=== PATIENT | male | born 1950 | race Caucasian/White ===

== ENCOUNTER 2019-05-11 11:42 | Inpatient (IN) ==
--- NOTE | 2019-05-11 12:07 | Diag Imaging Result Doc PS360 ---
EXAM: CHEST-PORTABLE 05/11/2019 HISTORY: slurred speech/confusion TECHNIQUE: AP upright at 1202 COMMENT: There is no evidence of acute cardiac or pulmonary disease. There are no previous studies available for comparison. IMPRESSION: No evidence of acute disease. Electronically signed by Loki Michael 05/11/2019 12:04 PM
--- NOTE | 2019-05-11 12:08 | Diag Imaging Result Doc PS360 ---
EXAM: CT HEAD W/O CONTRAST 05/11/2019 HISTORY: slurred speech s/p fall TECHNIQUE: This exam was performed using automated exposure control, adjustment of mA or kV according to patient size, and/or use of iterative reconstruction technique. COMMENT: There is no evidence of mass effect, bleed, or abnormal extra-axial fluid collection. The calvarium is intact. There are mucus retention cysts in both maxillary sinuses. IMPRESSION: No evidence of acute intracranial disease. Electronically signed by Loki Michael 05/11/2019 12:06 PM
--- NOTE | 2019-05-11 13:28 | EKG Report ---
Test Performed on : 05/11/2019 11:50:18 AM Test Reason : slurred speech Blood Pressure : / mmHG Vent. Rate : 062 BPM Atrial Rate : 062 BPM P-R Int : 176 ms QRS Dur : 096 ms QT Int : 430 ms P-R-T Axes : 038 -24 041 degrees QTc Int : 436 ms Sinus rhythm. with premature atrial complexes. Otherwise normal ECG No previous ECGs available Unconfirmed Result
[2019-05-11 13:56] LABS: BASO# 0.05 X1000 (0.0-0.2); BASO% 0.8 % (0.0-0.8); EOS# 0.43 X1000 (0.0-0.7); EOS% 7.1 % (0.0-10.0); HEMATOCRIT 46.4 % (42.0-52.0); HEMOGLOBIN 15.8 g/dL (14.0-18.0); LYMPH# 1.51 X1000 (1.2-3.4); LYMPH% 24.8 % (20.5-51.1); MCH 34.3 PG (27-31); MCHC 34.1 g/dL (33-37); MCV 100.9 FL (81-99); MONO# 0.74 X1000 (0.11-0.59); MONO% 12.2 % (1.7-9.3); MPV 10.2 FL (7.4-10.4); NEUT# 3.36 X1000 (1.4-6.5); NEUT% 55.1 % (42.2-75.2); PLT 295 X1000 (130-400); RDW 14.5 % (11.5-14.5); WBC 6.09 X1000 (4.8-10.8)
[2019-05-11 14:02] LABS: INR 0.99; PROTIME 13.2 Seconds (11.0-16.0)
[2019-05-11 14:03] LABS: PTT 31.1 Seconds (22.3-41.8)
[2019-05-11 14:25] LABS: AGAP 13; ALB/GLOB RATIO 1.5; ALBUMIN 4.2 g/dL (3.5-5.0); ALKALINE PHOSPHATASE 98 U/L (32-122); BUN 21 mg/dL (8-22); CALCIUM 8.9 mg/dL (8.8-10.2); CHLORIDE 103 mmol/L (98-107); CK PROFILE 199 U/L (24-204); COSMO 284; CREATININE 1.1 mg/dL (0.7-1.2); ESTIMATED GFR > 60; GLUCOSE 101 mg/dL (70-104); GOT 26 U/L (10-34); GPT 17 U/L (10-44); POTASSIUM 4.5 mmol/L (3.5-5.1); SODIUM 141 mmol/L (136-145); TCO2 25 mmol/L (25-35); TOTAL BILIRUBIN 0.54 mg/dL (0.20-1.00)
[2019-05-11 15:24] LABS: URINE SOURCE CLEAN CATCH
[2019-05-11 15:28] LABS: BILIRUBIN URINE NEGATIVE (NEGATIVE); BLOOD URINE NEGATIVE (NEGATIVE); COLOR YELLOW; GLUCOSE URINE NEGATIVE (NEGATIVE); KETONE URINE NEGATIVE (NEGATIVE); LEUKOCYTES URINE NEGATIVE (NEGATIVE); NITRITE URINE NEGATIVE (NEGATIVE); PROTEIN URINE NEGATIVE (NEGATIVE); SP GRAVITY URINE 1.019; TURBIDITY URINE CLEAR (CLEAR); UROBILINOGEN URINE NORMAL (NORMAL)
[2019-05-11 15:29] LABS: UR EPITHELIAL CELLS <10 /HPF (<10); URINE BACTERIA NEGATIVE /HPF; URINE RBC <10 /HPF (<10); URINE WBC <10 /HPF (<10)
--- NOTE | 2019-05-11 20:44 | HISTORY AND PHYSICAL ---
CHIEF COMPLAINT: Multiple recent falls at home, hit his head about 2:30 a.m. and has had slurred speech since. HISTORY OF PRESENT ILLNESS: Mr. Carmichael is a 68-year-old gentleman with an unfortunate progressive neurological condition that remains undiagnosed. It has been characterized by significant ataxia and spastic gait along with mild cognitive impairment, frequent stuttering, and other conditions described below. His accompanied him today and said that around 2:30 this morning he stood to void into a urinal and fell backwards and hit his occiput pretty hard on the floor. She feels his speech has been more slurred since he fell. He has fallen almost daily for the past several months. He walks with a walker at home but this has not helped much. He completed balance physical therapy in January and for a short while was walking better with more upright posture. His first fall was approximately two years ago. In December of 2017 he fell hard and was seen at [facility] where a CT scan revealed some fractured lumbar transverse processes. His falls became more frequent in June 2018. He has seen multiple specialists, including Kishan Carmona and Dr. Mc Vora for psychological testing. He has had an unremarkable EEG in July. Last June he had a nearly unremarkable MRI exam. He also has had MRI of his cervical spine with no evidence of severe or moderate spinal stenosis. In January of this year he had a PET scan of his brain which showed no temporal or frontal reduction in metabolism to suggest either Alzheimer's disease or frontotemporal dementia. No ventricular enlargement was present to suggest normal pressure hydrocephalus. PAST MEDICAL HISTORY: Remarkable for hypertension, obstructive sleep apnea, gastroesophageal reflux disease, previous gout attacks, impaired fasting glucose with borderline diabetes. PAST SURGICAL HISTORY: He has a remote history of L4 to S1 laminectomy and foraminectomy. He has had surgery in the past for parathyroid adenomas. He has had left knee surgery. In July 2018 he underwent right shoulder rotator cuff repair after a fall with a torn rotator cuff. He subsequently injured his shoulder again and his orthopedic surgeon declined to operate again until the falling was diagnosed and treated. HOME MEDICATIONS: Acyclovir 400 mg three times a day, allopurinol 300 mg daily, aspirin 325 mg twice a day, diazepam 5 mg at bedtime, donepezil 10 mg two tablets once daily for memory, lisinopril 40 mg daily for hypertension, rosuvastatin 20 mg daily for high cholesterol. ALLERGIES: He is allergic to Minocin, Zantac, codeine, minoxidil, and some adhesives. REVIEW OF SYSTEMS: Constitutional: No fever, chills, night sweats, or weight loss. Respiratory: No shortness of breath, cough, or wheezing. Cardiovascular: No recent chest pains, orthopnea, PND, palpitations, or pedal edema. Gastrointestinal: Appetite has been good. No recent nausea, vomiting, diarrhea, or constipation. No history of liver disease. Genitourinary: Nocturia x2, no dysuria or hematuria. Musculoskeletal: He frequently complains of some lower lumbar aching pains. Both shoulders have limitations of range of motion and some pain close to the limits of range of motion. Neurologic: No chronic headaches. Some occipital aching today after his fall. PHYSICAL EXAMINATION: VITAL SIGNS: Temperature 97.6, blood pressure 128/73, pulse 51 to 66, respiratory rate 19, O2 saturation 97% on room air. GENERAL APPEARANCE: Alert, elderly gentleman who answers questions in a somewhat gjmomr-gf-hsat way with flattened affect. He does not appear drowsy but sometimes is slow to respond. HEENT: Pupils equal, round and reactive to light. Extraocular movements intact. Sclerae are white. Oropharynx is benign. NECK: Supple with no adenopathy, JVD, or bruits. CHEST: The lungs are clear bilaterally to auscultation anteriorly and posteriorly. CARDIAC: Regular rate and rhythm. Normal S1 and S2. No S3, S4 or murmurs. ABDOMEN: Soft, flat, and nontender. Active bowel sounds. There is no guarding or rebound tenderness present. MUSCULOSKELETAL: He moves all extremities on commands. I did not note any tremor or rigidity. No cogwheeling is present. NEUROLOGIC: Cranial nerves are grossly intact. I do not appreciate any focal deficit. His gait is not tested. DATABASE: CBC is unremarkable. Chemistry profile with glucose of 101, otherwise unremarkable. MCV is borderline enlarged. Vitamin B12 level is normal. Chest x-ray is unremarkable. Head CT shows no evidence of mass effect, bleeding, or tumors. Mucus retention cysts were noted in both maxillary sinuses. Electrocardiogram was unremarkable. ASSESSMENT: 1. Multiple recent falls with history of ataxia and undiagnosed neurologic condition. 2. Mild cognitive impairment. 3. History of essential hypertension. 4. History of mild chronic kidney disease. TREATMENT PLAN: Admit with neurological consultation and close clinical examinations for altered mental status. I am at a loss for assigning a diagnosis to explain his multiple abnormal findings and relatively normal BASE MANAGER testing that has been done. cc: Red Burgos MD MTDD
[2019-05-11] MEDS: PRINIVIL PO SCH (21:00)
[2019-05-11] MEDS: ASPIRIN EC PO SCH (21:00)
[2019-05-12] MEDS: ARICEPT PO SCH (09:15)
[2019-05-12] MEDS: CRESTOR PO SCH (09:15)
--- NOTE | 2019-05-12 14:52 | CONSULTATION ---
DATE OF CONSULTATION: 05/12/2019 HISTORY OF PRESENT ILLNESS: Mr. Carmichael is 68 years old and he has continued downhill. He was last seen in my office in January. I initially saw him in August. He has had progressive cognitive impairment, gait difficulty, more frequent falling. There has been some personality change. He has been falling more frequently and reportedly fell and hit his head yesterday. reported speech was more difficult transiently after that fall. Brain MRI approximately a year ago was unremarkable for age. EEG was not remarkable. More recent brain PET was remarkably unremarkable. Cervical MRI in August showed diffuse degenerative changes but no evidence of significant cord abnormality. He has had a trial with donepezil without definite benefit. Donepezil dose had been 20 mg daily and after the PET report, I had recommended tapering donepezil to 10 mg daily with plans to stop it. He continues diazepam, buspirone, zolpidem as other medicines on board with potential CUSTOMER ENGAGEMENT REPRESENTATIVE effects. PHYSICAL EXAMINATION: On exam now, Mr. Carmichael is sitting up feeding himself, awake, alert, attentive. He followed simple instructions. He did well with commands requiring right/left distinction. He used his left arm a little bit more purposefully than the right. He was slow with ubjrsg-gw-irzp and performed that a little bit better with the left hand than the right. Limb tone is increased throughout. Reflexes are brisk throughout. Plantar response is silent bilaterally. Gait is wide-based with some spastic features and some lurching, lunging forward. He would have fallen after just a few steps had I not held him. IMPRESSION: Progressive degenerative central nervous system process with cognitive impairment, personality change, gait difficulty. Imaging has not provided an answer. Course seems too protracted to be typical of an autoimmune encephalitis. PLAN: I do not have any specific suggestion right now. As discussed with Dr. Burgos, I think elective tertiary clinic referral would be the best next step. Thanks for asking Neurology to see Mr. Carmichael. cc: MD Red Ford III, MD MTDD
--- NOTE | 2019-05-12 17:57 | PROVIDER DOCUMENTATION ---
This chart was entered by Lubna Chavez Scribe, acting as scribe for Tamika Bowman MD. HPI-Head Injury - General Chief Complaint: Head Injury Stated Complaint: FALL,HEAD INJURY,STROKE LIKE SYMPTOMS Time Seen by Provider: 05/11/19 12:07 Source: patient, family Allergies/Adverse Reactions: Patient Allergies Allergy/AdvReac Type Severity Reaction Status Date / Time minocycline [From Minocin] Allergy ITCHING Verified 05/11/19 12:23 ranitidine [From Zantac] Allergy SHORTNESS Verified 05/11/19 12:22 OF BREATH Home Medications: Home Medication List Medication Instructions Recorded Confirmed Last Taken Type Allopurinol [Zyloprim] 300 mg PO DAILY 05/11/19 05/11/19 05/11/19 History Aspirin [Ecotrin] 325 mg PO QHS 05/11/19 05/11/19 1 Day Ago History ~05/10/19 Donepezil [Aricept] 20 mg PO QAM 05/11/19 05/11/19 05/11/19 History Lisinopril [Zestril] 40 mg PO QPM 05/11/19 05/11/19 1 Day Ago History ~05/10/19 ROSUVAstatin [Crestor] 20 mg PO DAILY 05/11/19 05/11/19 05/11/19 History Tamsulosin [Flomax] 0.4 mg PO QPM 05/11/19 05/11/19 1 Day Ago History ~05/10/19 Folic Acid 1 mg PO DAILY #30 tab 05/17/19 Unknown Rx Zolpidem [Ambien] 10 mg PO HS PRN PRN #21 05/17/19 05/11/19 1 Day Ago Rx ~05/10/19 - History of Present Illness-Head Injury Nature of Presenting Problem: Pt is a 68 yom who presents into the ED via family for head injury. He fell at 2:30am. He hit his head on the corner of the night stand. Pt has right shoulder and back pain. Denies LOC, nausea, and vomiting. Head Injury Location: reports: occipital Other injuries associated with incident:: reports: RUE (shoulder). denies: chest, abdomen Quality of Pain: reports: aching Severity: reports: mild Onset/Duration: reports: this morning (2:30am) Timing: reports: still present, changing over time Method of Injury: reports: direct blow, fell. denies: assault, burn Any recent trauma/injury?: reports: minor, to head, to neck, other (lower and middle back pain from fall a week ago.) Loss of Consciousness: no loss of consciousness Injury Associated Symptoms: reports: back/neck pain, weakness Locality of Occurance: Home Similar Symptoms Previously?: Yes Recently seen or treated by another doctor?: No Review of Systems - Adult - REVIEW OF SYSTEMS - ADULT Constitutional: reports: no symptoms reported. denies: chills, fever, fatique Eyes: reports: no symptoms reported Ears, Nose, Mouth & Throat: reports: no symptoms reported Cardiovascular: reports: no symptoms reported Respiratory: reports: no symptoms reported Gastrointestinal: reports: no symptoms reported. denies: abdominal pain, [place], vomiting Genitourinary: reports: no symptoms reported Musculoskeletal: reports: see HPI, back pain (mid and lower), other (right sharon ulder pain) Integumentary: reports: no symptoms reported Neurological: reports: see HPI, other (head injury without LOC). denies: dizziness/vertigo, headache/migraines Psychiatric: reports: no symptoms reported Endocrine: reports: no symptoms reported Hematologic/Lymphatic: reports: no symptoms reported Allergic/Immunologic: reports: no symptoms reported All Other Systems: Reviewed and Negative Past History - Adult - PAST MEDICAL HISTORY-ADULT Review of Records: reports: Old Records Reviewed, Social history reviewed & non- contributory. Major Childhood Illnesses: reports: denies history Cardiovascular: reports: HTN, hyperlipidemia Respiratory: reports: denies history. denies: COPD, lung disease Gastrointestinal: reports: denies history Obstetrical/Gynecological: reports: denies history Genitourinary: reports: denies history Musculoskeletal: reports: neck/back injury Neurological: reports: dementia. denies: headaches/migraines, speech difficulty Endocrine/Immune: reports: denies history Other Conditions: reports: denies history - PRIOR SURGERIES/PROCEDURES Surgical/Procedure History: reports: orthopedic (extremity) (right shoulder) - IMMUNIZATION STATUS Childhood Immunizations: See Nurse Assessment Flu Vaccine: See Nurse Assessment - FAMILY HISTORY Family History: reviewed, not pertinent - SOCIAL HISTORY Smoking: cigarettes (former) Substance Use: denies Living Situation: family Physical Exam- Neurological - Physical Exam-Neuro Initial Vital Signs Reviewed: Yes General Appearance: alert, no apparent distress. negative: lethargic HENMT: moist mucous membranes, other (ecchymosis to occipital scalp). negative: angioedema Head Injury: ecchymosis (occipital scalp). negative: lacerations, swelling Neck: non-tender, full range of motion, normal inspection. negative: tender lateral Respiratory: chest non-tender, lungs clear, normal breath sounds. negative: rales, stridor Cardiovascular: normal peripheral pulses, regular rate, rhythm. negative: tachycardia Abdominal Exam: normal bowel sounds, non tender, soft. negative: guarding, rebound Extremity: other (decreased ROM to right shoulder). negative: deformity, ten derness Neurologic: grossly normal, no motor/sensory deficits. negative: aphasia Integumentary: normal turgor, warm/dry, ecchymosis (occipital scalp, left lower back and right side chest). negative: laceration(s) Psych/Mental Status: normal mood/affect. negative: anxious Progress - PLAN OF CARE/RESULTS Progress/Plan/Lab Results: Orders Category Date Time Status [facility] Routine AdmDCTranf 05/11/19 17:51 Active Activity - Up with Assistance ORDERED Care 05/11/19 17:51 Active Apply Mechanical Device [QM] ORDERED Care 05/11/19 17:51 Active Cardiac Monitoring DIRECTED Care 05/11/19 11:51 Completed DVT/PE Risk Assess/Protocol [QM] ORDERED Care 05/11/19 17:51 Active Finger Stick Blood Sugar (ED) DIRECTED Care 05/11/19 11:51 Completed Intake and Output-Strict ORDERED Care 05/11/19 17:51 Active Neurological Check ORDERED Care 05/11/19 17:51 Active Nursing- MD Consult Request ROUTINE Care 05/11/19 17:51 Completed Saline Loc NOW Care 05/11/19 11:51 Completed Vital Signs Order Q 8-HR ASSESS Care 05/11/19 17:51 Completed Physician/Provider Consults Routine Cons 05/11/19 17:51 Ordered Regular Diet Diet 05/11/19 17:51 Completed CHEST-PORTABLE [RAD] Stat Exams 05/11/19 11:[address] HEAD W/O CONTRAST [CT] Stat Exams 05/11/19 11:49 Completed CBC WITH ELECTRONIC DIFF [HEME] Stat Lab 05/11/19 12:45 Completed CK PROFILE [SP CHEM] Stat Lab 05/11/19 12:45 Completed COMPREHENSIVE METABOLIC PANEL [CHEM] Stat Lab 05/11/19 12:45 Completed FOLATE Routine Lab 05/11/19 12:45 Completed PROTIME WITH INR [COAG] Stat Lab 05/11/19 12:45 Completed PTT [COAG] Stat Lab 05/11/19 12:45 Completed TROPONIN T Stat Lab 05/11/19 12:45 Completed URINALYSIS W/POSS RFLX CULT [URINALYSIS] Stat Lab 05/11/19 15:06 Completed VITAMIN B12 Routine Lab 05/11/19 12:45 Completed Aspirin EC Med 05/11/19 21:00 Discontinued 325 mg PO QHS Donepezil [Aricept] Med 05/12/19 09:00 Discontinued 20 mg PO QAM LISINOpril [Prinivil] Med 05/11/19 21:00 Discontinued 40 mg PO QPM ROSUVAstatin [Crestor] Med 05/12/19 09:00 Discontinued 20 mg PO DAILY Zolpidem [Ambien] Med 05/11/19 17:51 Discontinued 10 mg PO HS PRN PRN EKG [EKG] Stat Ther 05/11/19 11:51 Draft Physical Therapy Eval/Treatment [OM.PT] Routine Ther 05/11/19 17:51 Active Transfer/Admit Order [TRANSFER] Routine Transfer 05/11/19 17:02 Completed Result Diagrams: 05/11/19 12:45 05/11/19 12:45 - EKG 1 Time of EKG reading by physician:: 11:50 EKG Read and Signed by:: Tamika Bowman EKG Interpretation (*Must complete 3 of following elements*): Abnormal Rate: 62 Rhythm: sinus rhythm with premature atrial complexes [place]: normal [place] Interval: normal Comments: otherwise normal ECG - XRAY 1 XRAY Study: Chest Impression: See EMR Report (EXAM: CHEST-PORTABLE 05/11/2019 HISTORY: slurred speech/confusion TECHNIQUE: AP upright at 1202 COMMENT: There is no evidence of acute cardiac or pulmonary disease. There are no previous studies available for comparison. IMPRESSION: No evidence of acute disease. Electronically signed by Loki Michael 05/11/2019 12:04 PM 05/11/19 1204 Interpreting Physician: Loki Michael MD Dictated Date/Time: 05/11/19 1203 cc: Tamika Bowman MD; Red Burgos MD) - CT/MRI 1 CT Study: Head Impression: See EMR Report (EXAM: CT HEAD W/O CONTRAST 05/11/2019 HISTORY: slurred speech s/p fall TECHNIQUE: This exam was performed using automated exposure control, adjustment of mA or kV according to patient size, and/or use of iterative reconstruction technique. COMMENT: There is no evidence of mass effect, bleed, or abnormal extra-axial fluid collection. The calvarium is intact. There are mucus retention cysts in both maxillary sinuses. IMPRESSION: No evidence of acute intracranial disease. Electronically signed by Loki Michael 05/11/2019 12:06 PM 05/11/19 1206 Interpreting Physician: Loki Michael MD Dictated Date/Time: 05/11/19 1205 cc: Tamika Bowman MD; Red Burgos MD) - CONSULTS/PCP/HOSPITALIST Notification #1 *Consult/PCP/Hospitalist*: Dr. Burgos Time Discussed: 14:52 Reason/Comments: Dr. Bowman consulted with Dr. Burgos about patient Consult Disposition: Admit Departure - Departure Date of Disposition Decision: 05/11/19 Time of Disposition Decision: 15:00 DIAGNOSIS: Fall Head injury Qualifiers: Encounter type: initial encounter Qualified Code(s): S09.90XA - Unspecified injury of head, initial encounter Disposition: ADMITTED INPATIENT 09 Certified Medical Emergency: Emergent Condition: Good - Critical Care Note This patient required my direct & personal management of CC.: No Attestation - Physician/ SLICK Attestation Patient care was provided by Advanced Practice Provider:: No The physician spent face to face time with patient:: Yes Advanced Practice Provider documentation review:: Supervising physician onsite and consulted in the evaluation and care of this patient. The physician did have a face to face encounter with the patient. This chart was documented by the indicated scribe, (Lubna Chavez Scribe) and accurately reflects the services I performed and decisions made by me, Tamika Bowman MD, as attested by the provider's signature.
[2019-05-12] MEDS: AMBIEN PO PRN (20:14)
[2019-05-12] MEDS: ASPIRIN EC PO SCH (20:15)
[2019-05-12] MEDS: PRINIVIL PO SCH (20:15)
--- NOTE | 2019-05-13 10:07 | PROGRESS NOTE ---
DATE: 05/13/2019 Mr. Carmichael is a patient of Dr. Red Burgos who presented with multiple falls, history of multiple falls, hit his head at 2:30 in the morning, came in with slurred speech. A 68-year-old gentleman with unfortunate progressive neurologic condition that remains undiagnosed. He has been characterized with significant ataxia with spastic gait along with mild cognitive impairment, frequent stuttering and other conditions. His said that he stood trying to void into a urinal and fell backwards hitting his back of his head pretty hard. Feels his speech is more slurred. He has fallen almost daily for the past several months. Walks with a walker at home, but it has not helped much. He completed balance physical therapy in January and for short while he was walking better, more upright posture. His 1st fall was approximately 2 years ago, December 2017, fell hard. Seen at [facility] where CT scan revealed some fracture, lumbar transverse process, and his falls have become more frequent in June 2018. He has seen multiple specialists including Dr. Carmona, Dr. Mc Vora for psychological testing. Had an unremarkable EEG in July. Had a nearly unremarkable MRI exam of his cervical spine. No evidence of severe moderate spinal stenosis. He had a PET scan of his brain which showed no temporal or frontal reduction in metabolism to suggest Alzheimer's dementia or frontal temporal dementia. No ventricular enlargement to suggest hydrocephaly. PAST MEDICAL HISTORY: Remarkable for hypertension, obstructive sleep apnea, gastroesophageal reflux, previous gout attacks, impaired fasting glucose with borderline diabetes. PAST SURGICAL HISTORY: He has had a history of L4-L1 laminectomy and foraminectomy. He has had surgery in the past for parathyroid adenomas. He had left knee surgery in July 2018, underwent right shoulder rotator cuff repair after a fall. He subsequently injured his shoulder again and the surgeon declined to operate again with his risk of falling. HOME MEDICATION: He is on acyclovir, allopurinol, aspirin, diazepam, donepezil 10 mg 2 tablets a day for memory, lisinopril 40 mg a day for hypertension, rosuvastatin 20 mg a day for cholesterol. ALLERGIES: Minocin, Zantac, codeine, minoxidil, and some adhesives. He is hard to give me much response. He does not feel like he is a whole lot different or better. He was lying in the bed. I had him scoot up, put up his bed so he could start eating breakfast. He was hungry. OBJECTIVE: Vital Signs: Temp 97.5 degrees, pulse 56, respirations 20, blood pressure 149/71. HEENT: His pupils are equal and round. Lungs: Are clear in all lung mata. Cardiovascular: Regular rhythm and rate without murmur or S3. Abdomen: Is soft. Skin: Is warm and dry. Urine output is 1500 mL. Reviewed all of his lab. I did not see anything remarkable. ASSESSMENT AND PLAN: 1. Multiple recent falls. History of ataxia. Diagnosis neurologic condition. 2. Mild cognitive impairment. 3. History of essential hypertension. 4. Mild chronic kidney disease. CURRENT ORDERS: He has physical therapy involved. He is on a regular diet. He is getting aspirin 325 mg at bedtime, Aricept 20 mg p.o. q.a.m., Prinivil 40 mg q.p.m., Crestor 20 mg a day and Ambien 10 mg p.o. at bedtime p.r.n. cc: MD Red Mccurdy MD
[2019-05-13] MEDS: ARICEPT PO SCH (10:42)
[2019-05-13] MEDS: CRESTOR PO SCH (10:43)
[2019-05-13 15:42] LABS: URINE SOURCE CLEAN CATCH
[2019-05-13 15:46] LABS: BILIRUBIN URINE NEGATIVE (NEGATIVE); BLOOD URINE NEGATIVE (NEGATIVE); COLOR YELLOW; GLUCOSE URINE NEGATIVE (NEGATIVE); KETONE URINE NEGATIVE (NEGATIVE); LEUKOCYTES URINE NEGATIVE (NEGATIVE); NITRITE URINE NEGATIVE (NEGATIVE); PROTEIN URINE TRACE mg/dL (NEGATIVE); SP GRAVITY URINE 1.018; TURBIDITY URINE HAZY (CLEAR); UROBILINOGEN URINE NORMAL (NORMAL)
[2019-05-13 15:51] LABS: UR EPITHELIAL CELLS <10 /HPF (<10); URINE BACTERIA NEGATIVE /HPF; URINE RBC <10 /HPF (<10); URINE WBC <10 /HPF (<10)
[2019-05-13 16:00] LABS: URINE CASTS NONE SEEN; URINE CRYSTALS NONE SEEN; URINE YEAST NONE SEEN
[2019-05-13] MEDS: PRINIVIL PO SCH (20:27)
[2019-05-13] MEDS: ASPIRIN EC PO SCH (20:27)
[2019-05-13] MEDS: AMBIEN PO PRN (20:36)
[2019-05-14] MEDS: ARICEPT PO SCH (09:46)
[2019-05-14] MEDS: CRESTOR PO SCH (09:46)
--- NOTE | 2019-05-14 10:36 | PROGRESS NOTE ---
DATE: 05/14/2019 SUBJECTIVE: Mr. Carmichael is awake and pleasant. He has a pretty flat affect. Answers questions pretty straightforward. Denies any pain or trouble with his bowels. He is not sure if he is any better. He is oriented to the hospital, the month, and the year. No focal neurologic deficits reported. Moving all extremities well. OBJECTIVE: Temperature 99.1 degrees, pulse 60, respirations 16, blood pressure 119/56. Pupils are equal and round. Lungs are clear in all lung mata. Cardiovascular Examination: Regular rhythm and rate without murmur or S3. Abdomen is soft. Skin is warm and dry. ASSESSMENT AND PLAN: 1. Multiple recent falls, history of ataxia, undiagnosed neurologic condition, a very flat affect. 2. Mild cognitive impairment. 3. History of essential hypertension. 4. Mild chronic kidney disease. His renal function, serum creatinine is 1.1, which looks good. REVIEW OF HIS ORDERS: He is just on aspirin 325 mg a day, Aricept 20 mg q.a.m., lisinopril 40 mg a day, Crestor 20 mg a day, and he takes Ambien [address] Carmona has evaluated and feels he has progressive degenerative central nervous system process with cognitive impairment, personality change, gait difficulty. Imaging so far has not provided any answers. The course seems too protracted to be typical of autoimmune encephalitis or vasculitis. cc: MD Red Mccurdy MD
[2019-05-14] MEDS: ASPIRIN EC PO SCH (20:19)
[2019-05-14] MEDS: PRINIVIL PO SCH (20:19)
[2019-05-14] MEDS: AMBIEN PO PRN (20:20)
[2019-05-15] MEDS: ARICEPT PO SCH (08:43)
[2019-05-15] MEDS: CRESTOR PO SCH (08:43)
[2019-05-15] MEDS: ASPIRIN EC PO SCH (21:13)
[2019-05-15] MEDS: PRINIVIL PO SCH (21:13)
[2019-05-16] MEDS: CRESTOR PO SCH (09:43)
[2019-05-16] MEDS: ARICEPT PO SCH (09:43)
[2019-05-16] MEDS: PRINIVIL PO SCH (20:20)
[2019-05-16] MEDS: ASPIRIN EC PO SCH (20:20)
[2019-05-16] MEDS: AMBIEN PO PRN (20:25)
[2019-05-17 07:19] VITALS: BP 105/52
[2019-05-17] MEDS: ARICEPT PO SCH (08:32)
[2019-05-17] MEDS: CRESTOR PO SCH (08:32)
--- NOTE | 2019-05-17 08:51 | DISCHARGE SUMMARY ---
ADMISSION DATE: 05/11/2019 DISCHARGE DATE: 05/17/2019 FINAL DIAGNOSES: 1. Multiple recent falls with closed head injury and slurred speech. 2. 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 3. History of essential hypertension. 4. History of gout. 5. History of mild chronic kidney disease. 6. Possible folate deficiency. Mr. Kenneth Carmichael was evaluated in the emergency room after falling harder than usual at home. He has a history of almost daily falls for the past several months. His history is well summarized in the dictated History and Physical. He has a puzzling progressive neurologic disease that has defied our local neurologist and myself for final diagnosis. PHYSICAL EXAMINATION: VITAL SIGNS: Remarkable for normal vital signs. GENERAL: He is an alert, elderly gentleman who answered questions in a somewhat [id number] way with flattened affect. He does not appear drowsy but is slow to respond. HEENT: Pupils were equal, round, reactive to light. Extraocular movements intact. LUNGS: Clear. CARDIAC: Regular rate and rhythm. No murmurs. ABDOMEN: Soft, nontender. NEUROLOGICAL: No tremor, rigidity or cogwheeling was noted on neurologic exam. His cranial nerves were grossly intact and no focal deficit was appreciated. DATA BASE: CBC was unremarkable except for a borderline elevated MCV. Chemistry profile was normal. Vitamin B12 level was normal. Folate level was slightly low at 8.9. Head CT showed no evidence of mass effect, bleeding or tumors. HOSPITAL COURSE: He was admitted for serial neuro checks and other neurological evaluation. Dr. Carmona was consulted and felt he had reached the limit of our diagnostic abilities here in [place] and recommended he be evaluated by the Neurology Clinic at [facility]. I called and spoke with Dr. Ryan who felt he was appropriate for either the Memory Disorders Clinic or the General Neurology Clinic and will contact his with an appointment. With physical therapy, he progressed to where he was able to walk up to 250 feet but required frequent verbal cueing for patient safety and erect posture. He is discharged to [facility] for subacute rehab. DISCHARGE MEDICINES: 1. Folic acid 1 mg daily. 2. Allopurinol 300 mg daily. 3. Donepezil 20 mg daily. 4. Lisinopril 40 mg at bedtime. 5. Rosuvastatin 20 mg at bedtime. 6. Aspirin 325 mg at bedtime. 7. Tamsulosin 0.4 mg daily after supper. 8. Zolpidem 10 mg at bedtime p.r.n. for sleep. cc: Red Burgos MD
== END 2019-05-17 14:40 | DRG 57 ==
LOC: ED 11:42 → 3N 17:34
PROVIDERS: ADMIT Internal Medicine; ATTEND Internal Medicine

== ENCOUNTER 2019-07-21 20:41 | Inpatient (IN) ==
[2019-07-21] MEDS: EPINEPHRINE 4 MG in NS 250 ML IV SCH (21:05)
[2019-07-21] MEDS ORDERED: FENTANYL IV ONE (21:23)
[2019-07-21 21:25] LABS: ALLEN TEST YES; BE -13.3 mmoll (-3.0-3.0); BLOOD TYPE ARTERIAL; HCO3-(ACT) 14.5 mmoll (20.0-26.0); METHB 0.5 % (0.0-1.5); O2(CT) 16.3 mL/dL (15.0-23.0); O2HB 95.2 % (95.0-99.0); PO2(98.6) 122 mmHg (60-100); SAMPLE BLOOD; SAO2 97.6 % (95.0-100.0); SRATE 16 BPM; TVOL 550 mL
[2019-07-21 21:29] LABS: MODALITY VENTILATOR; PCO2(98.6) 108 mmHg (35-45)
[2019-07-21] MEDS ORDERED: FENTANYL 1,000 MICROGM in NS 80 ML IV SCH (21:30)
[2019-07-21] MEDS ORDERED: NS 1,000 ML ONE (21:39)
[2019-07-21] MEDS ORDERED: CALCIUM CHLORIDE SYRINGE ONE (22:00)
[2019-07-21] MEDS ORDERED: EPINEPHRINE SYRINGE ONE (22:00)
[2019-07-21] MEDS ORDERED: SODIUM BICARBONATE 8.4% ONE (22:00)
--- NOTE | 2019-07-21 22:03 | Diag Imaging Result Doc PS360 ---
EXAM: CHEST-PORTABLE 07/21/2019 HISTORY: Tube placement TECHNIQUE: AP portable supine at 2155 COMMENT: There is an endotracheal tube with its tip below the thoracic inlet. The inspiration is somewhat suboptimal. Considering degree of inspiration and technique there has been no significant change since 05/11/2019. IMPRESSION: No evidence of acute disease. Electronically signed by Loki Michael 07/21/2019 10:00 PM
[2019-07-21 22:29] LABS: INR 1.29; PROTIME 16.3 Seconds (11.0-16.0)
[2019-07-21 22:30] LABS: PTT 44.2 Seconds (22.3-41.8)
[2019-07-21 22:31] LABS: ALLEN TEST YES; BE -6.7 mmoll (-3.0-3.0); BLOOD TYPE ARTERIAL; HCO3-(ACT) 19.7 mmoll (20.0-26.0); METHB 0.7 % (0.0-1.5); O2(CT) 16.5 mL/dL (15.0-23.0); O2HB 97.6 % (95.0-99.0); PCO2(98.6) 45 mmHg (35-45); PO2(98.6) 291 mmHg (60-100); SAMPLE BLOOD; SAO2 99.7 % (95.0-100.0); SRATE 16 BPM; THB 11.5 g/dL (11.5-17.4); TVOL 550 mL; pH(98.6) 7.26 (7.35-7.45)
[2019-07-21 22:32] LABS: MODALITY VENTILATOR
[2019-07-21 22:38] LABS: BASO# 0.07 X1000 (0.0-0.2); BASO% 0.6 % (0.0-0.8); EOS# 0.37 X1000 (0.0-0.7); EOS% 3.2 % (0.0-10.0); HEMOGLOBIN 11.8 g/dL (14.0-18.0); IMM GRAN# 0.54 X1000 (0.0-0.04); IMM GRAN% 4.7 % (0.0-0.5); LYMPH# 4.26 X1000 (1.2-3.4); LYMPH% 36.9 % (20.5-51.1); MCH 33.3 PG (27-31); MCHC 31.9 g/dL (33-37); MCV 104.5 FL (81-99); MONO# 0.88 X1000 (0.11-0.59); MONO% 7.6 % (1.7-9.3); MPV 10.1 FL (7.4-10.4); NEUT# 5.41 X1000 (1.4-6.5); PLT 351 X1000 (130-400); RBC 3.54 XMIL (4.7-6.1); RDW 14.5 % (11.5-14.5); WBC 11.53 X1000 (4.8-10.8)
[2019-07-21 22:39] LABS: ALB/GLOB RATIO 1.5; ALBUMIN 3.2 g/dL (3.5-5.0); CALCIUM 8.7 mg/dL (8.8-10.2); CREATININE 1.3 mg/dL (0.7-1.2); POTASSIUM 4.1 mmol/L (3.5-5.1); TOTAL BILIRUBIN 1.04 mg/dL (0.20-1.00); TOTAL PROTEIN 5.3 g/dL (6.3-8.3)
[2019-07-21] MEDS ORDERED: ATIVAN IV ONE (23:28)
[2019-07-21] MEDS ORDERED: ATIVAN ONE (23:34)
[2019-07-22] MEDS: DIPRIVAN 1% 1,000 MG/100 ML BOTTLE IV SCH ×4 (00:51→05:46)
[2019-07-22] MEDS ORDERED: CALCIUM CHLORIDE ONE (01:00)
[2019-07-22] MEDS ORDERED: SODIUM BICARBONATE 8.4% ONE ×2 (01:00→08:56)
[2019-07-22] MEDS ORDERED: EPINEPHRINE SYRINGE ONE (01:00)
[2019-07-22] MEDS ORDERED: TYLENOL PR PRN (01:04)
[2019-07-22] MEDS ORDERED: NS 500 ML IV PRN (01:04)
[2019-07-22] MEDS ORDERED: SODIUM PHOSPHATE 20 MMOL in NS 250 ML IV PRN (01:15)
[2019-07-22] MEDS ORDERED: POTASSIUM CHLORIDE 40 MEQ in NS 250 ML IV PRN (01:15)
[2019-07-22] MEDS ORDERED: FENTANYL IV ONE (01:15)
[2019-07-22] MEDS: PEPCID IV SCH ×2 (01:15→14:01)
[2019-07-22] MEDS ORDERED: SODIUM PHOSPHATE 10 MMOL in NS 250 ML IV PRN (01:15)
[2019-07-22] MEDS: SODIUM CHLORIDE 0.9% INJ SCH ×2 (01:15→14:01)
[2019-07-22] MEDS: LACRI-LUBE OPH OINT BOTH EYES SCH ×4 (01:15→19:53)
[2019-07-22] MEDS ORDERED: MAGNESIUM SULFATE 2 GM in STERILE WATER INJ. 50 ML IV PRN (01:15)
[2019-07-22] MEDS ORDERED: LOVENOX SUBQ SCH (01:15)
[2019-07-22] MEDS ORDERED: POTASSIUM CHLORIDE 60 MEQ in NS 500 ML IV PRN (01:15)
--- NOTE | 2019-07-22 01:22 | PROVIDER DOCUMENTATION ---
This chart was entered by Topher Sy Scribe, acting as scribe for Gus Farfan MD. HPI-Cardiopulmonary Arrest - General Chief Complaint: Choking Stated Complaint: choking Time Seen by Provider: 07/21/19 20:48 Source: patient, EMS Allergies/Adverse Reactions: Allergies Allergy/AdvReac Type Severity Reaction Status Date / Time codeine Allergy ITCHING Verified 07/21/19 20:49 minocycline [From Minocin] Allergy ITCHING Verified 07/21/19 20:49 ranitidine [From Zantac] Allergy SHORTNESS Verified 07/21/19 20:49 OF BREATH Home Medications: Home Medication List Medication Instructions Recorded Confirmed Last Taken Type Allopurinol [Zyloprim] 300 mg PO DAILY 05/11/19 07/21/19 05/11/19 History Aspirin [Ecotrin] 325 mg PO QHS 05/11/19 07/21/19 1 Day Ago History ~05/10/19 Lisinopril [Zestril] 40 mg PO QPM 05/11/19 07/21/19 1 Day Ago History ~05/10/19 ROSUVAstatin [Crestor] 20 mg PO DAILY 05/11/19 07/21/19 05/11/19 History Tamsulosin [Flomax] 0.4 mg PO QPM 05/11/19 07/21/19 1 Day Ago History ~05/10/19 Citalopram [Celexa] 1 tab PO DAILY 07/21/19 07/22/19 Unknown History Diazepam 1 tab PO DAILY 07/21/19 07/22/19 Unknown History Glycopyrrolate 1 tab PO BID 07/21/19 07/21/19 Unknown History Zolpidem Tartrate 1 tab PO DAILY 07/21/19 07/22/19 Unknown History Zolpidem [Ambien] 0.5 tab PO HS PRN PRN 07/21/19 07/21/19 Unknown History - History of Present Illness-C/P Arrest Initial Comments: 68 yom presenst to the ed v/a ems in full arrest. EMS stated pt was chocking on piece of meat, on EMS arrival pt " head was completely purple ems states doing suction with huge piece of meat coming out , pt then started gag reflexes pt was put on bag then went to assisted ventilation." EMS states pt was w/o oxygen for 5 mins. Per EMS the patient was hypoxic in the 70s, but on arrival to hospital went into asystole. The patient was intubated and an IO was placed by SLICK. Reason for Code Blue?: full arrest CPR initiated before doctor arrival?: Yes Initial Findings: unresponsive Treatment initiated prior to doctor arrival?: Initiated intubated, Initiated CPR/thumper - Pre-hospital Treatment EMS Initial Findings:: unresponsive Pre-hospital Treatment: Initiated CPR Review of Systems - Adult - REVIEW OF SYSTEMS - ADULT ROS:: unobtainable per condition Constitutional: reports: no symptoms reported Eyes: reports: no symptoms reported Ears, Nose, Mouth & Throat: reports: no symptoms reported Cardiovascular: reports: no symptoms reported Respiratory: reports: no symptoms reported Gastrointestinal: reports: no symptoms reported Genitourinary: reports: no symptoms reported Musculoskeletal: reports: no symptoms reported Integumentary: reports: no symptoms reported Neurological: reports: no symptoms reported Psychiatric: reports: no symptoms reported Endocrine: reports: no symptoms reported Hematologic/Lymphatic: reports: no symptoms reported Allergic/Immunologic: reports: no symptoms reported All Other Systems: Reviewed and Negative Past History - Adult - PAST MEDICAL HISTORY-ADULT Review of Records: reports: Old Records Reviewed Major Childhood Illnesses: reports: denies history Cardiovascular: reports: HTN Respiratory: reports: denies history Gastrointestinal: reports: denies history Obstetrical/Gynecological: reports: denies history Genitourinary: reports: denies history Musculoskeletal: reports: denies history Neurological: reports: denies history Psychiatric: reports: denies history Endocrine/Immune: reports: denies history Other Conditions: reports: denies history - PRIOR SURGERIES/PROCEDURES Surgical/Procedure History: reports: reviewed, not pertinent - IMMUNIZATION STATUS Childhood Immunizations: See Nurse Assessment Flu Vaccine: See Nurse Assessment - FAMILY HISTORY Family History: reviewed, not pertinent - SOCIAL HISTORY Smoking: quit greater than 1 year Physical Exam-General - PHYSICAL EXAM-ADULT Initial Vital Signs Reviewed: Yes - CONSTITUTIONAL General Appearance: obtunded - EYES Eyes: negative: PERRL/EOMI (pupils not reactive, but not dialated or pinpoint), conjuctival exudate, sclera injected, scleral icterus - HEAD, EARS, NOSE, MOUTH & THROAT HENMT: other (ET in mouth) - RESPIRATORY Respiratory: other (bilateral breath sounds on ventilator with ET in place) - GASTROINTESTINAL (ABDOMEN) Abdominal Exam: soft, distended - MUSCULOSKELETAL Extremity: other (trace LE edema) - NEUROLOGIC Neurologic: other (obtunded and on ventilator) - PSYCHIATRIC Psych/Mental Status: other (obtunded) Progress - PLAN OF CARE/RESULTS Progress/Plan/Lab Results: Vital Signs - 8 hr 07/21/19 20:59 07/21/19 21:02 07/21/19 21:05 Temperature Pulse Rate 143 H 147 H 129 H Respiratory Rate 15 19 21 Blood Pressure 190/115 167/65 146/56 O2 Sat by Pulse Oximetry 86 L 95 95 07/21/19 21:12 07/21/19 21:27 07/21/19 21:31 Temperature 96.8 F L Pulse Rate 98 H 122 H Respiratory Rate 21 16 Blood Pressure 105/48 156/67 O2 Sat by Pulse Oximetry 100 100 07/21/19 21:32 07/21/19 21:42 07/21/19 21:52 Temperature Pulse Rate 127 H 120 H 105 H Respiratory Rate 19 20 22 Blood Pressure 133/57 96/53 86/45 O2 Sat by Pulse Oximetry 100 100 100 07/21/19 21:59 07/21/19 22:02 07/21/19 22:07 Temperature Pulse Rate 102 H 101 H 104 H Respiratory Rate 24 21 25 H Blood Pressure 78/42 86/44 78/42 O2 Sat by Pulse Oximetry 100 100 100 07/21/19 22:12 07/21/19 22:17 07/21/19 22:28 Temperature Pulse Rate 107 H 108 H 103 H Respiratory Rate 18 18 25 H Blood Pressure 78/60 108/50 91/45 O2 Sat by Pulse Oximetry 100 100 100 07/21/19 22:32 07/21/19 22:37 07/21/19 22:47 Temperature Pulse Rate 100 H 101 H 98 H Respiratory Rate 24 26 H 25 H Blood Pressure 91/53 98/42 101/54 O2 Sat by Pulse Oximetry 100 99 99 07/21/19 22:56 07/21/19 22:59 07/21/19 23:02 Temperature Pulse Rate 94 H 94 H 94 H Respiratory Rate 24 27 H 27 H Blood Pressure 81/53 86/51 91/50 O2 Sat by Pulse Oximetry 99 98 98 07/21/19 23:17 07/21/19 23:32 07/21/19 23:47 Temperature Pulse Rate 90 90 92 H Respiratory Rate 24 27 H 22 Blood Pressure 100/43 125/58 107/58 O2 Sat by Pulse Oximetry 96 97 97 07/21/19 23:59 Temperature Pulse Rate 93 H Respiratory Rate 26 H Blood Pressure 117/63 O2 Sat by Pulse Oximetry 100 Laboratory Results - last 24 hr 07/21/19 07/21/19 07/21/19 21:16 21:19 21:19 WBC 11.53 H RBC 3.54 L Hgb 11.8 L Hct 37.0 L MCV 104.5 H MCH 33.3 H MCHC 31.9 L RDW Std Deviation 14.5 Plt Count 351 MPV 10.1 Immature Gran % (Auto) 4.7 H Neut % (Auto) 47.0 Lymph % (Auto) 36.9 Bryan % (Auto) 7.6 Eos % (Auto) 3.2 Baso % (Auto) 0.6 Immature Gran # (Auto) 0.54 H Neut # (Auto) 5.41 Lymph # (Auto) 4.26 H Bryan # (Auto) 0.88 H Eos # (Auto) 0.37 Baso # (Auto) 0.07 PT INR PTT (Actin FS) Specimen Type ARTERIAL Sample Site L RADIAL pH 6.90 L* pCO2 108 H* pO2 122 H HCO3 14.5 L Base Excess -13.3 L Oxyhemoglobin 95.2 ABG O2 Sat (Calculated) 16.3 ABG O2 Saturation 97.6 ABG Carboxyhemoglobin 2.00 ABG Methemoglobin 0.5 Patrick Test YES A-a O2 Difference 456.0 Total Hemoglobin 12.0 Lactate 9.40 H* Blood Gas Modality VENTILATOR Vent Mode Spontaneous Rate 16 FiO2 % 100.0 Tidal Volume 550 PEEP 5.0 Sodium Potassium Chloride Carbon Dioxide Anion Gap BUN Creatinine Estimated GFR/1.73 m2 BUN/Creatinine Ratio Glucose Calculated Osmolality Calcium Total Bilirubin AST ALT Alkaline Phosphatase Creatine Kinase Troponin T Total Protein Albumin Globulin Albumin/Globulin Ratio Plasma Lactate Plasma/Serum Ethyl Alc 07/21/19 07/21/19 07/21/19 21:19 21:19 21:19 WBC RBC Hgb Hct MCV MCH MCHC RDW Std Deviation Plt Count MPV Immature Gran % (Auto) Neut % (Auto) Lymph % (Auto) Bryan % (Auto) Eos % (Auto) Baso % (Auto) Immature Gran # (Auto) Neut # (Auto) Lymph # (Auto) Bryan # (Auto) Eos # (Auto) Baso # (Auto) PT 16.3 H INR 1.29 PTT (Actin FS) 44.2 H Specimen Type Sample Site pH pCO2 pO2 HCO3 Base Excess Oxyhemoglobin ABG O2 Sat (Calculated) ABG O2 Saturation ABG Carboxyhemoglobin ABG Methemoglobin Patrick Test A-a O2 Difference Total Hemoglobin Lactate Blood Gas Modality Vent Mode Spontaneous Rate FiO2 % Tidal Volume PEEP Sodium 139 Potassium 4.1 Chloride 99 Carbon Dioxide 20 L Anion Gap 20 BUN 17 Creatinine 1.3 H Estimated GFR/1.73 m2 55 BUN/Creatinine Ratio 13 Glucose 247 H Calculated Osmolality 287 Calcium 8.7 L Total Bilirubin 1.04 H AST 64 H ALT 34 Alkaline Phosphatase 101 Creatine Kinase 202 Troponin T < 0.010 Total Protein 5.3 L Albumin 3.2 L Globulin 2.1 Albumin/Globulin Ratio 1.5 Plasma Lactate Plasma/Serum Ethyl Alc 07/21/19 07/21/19 22:21 23:40 WBC RBC Hgb Hct MCV MCH MCHC RDW Std Deviation Plt Count MPV Immature Gran % (Auto) Neut % (Auto) Lymph % (Auto) Bryan % (Auto) Eos % (Auto) Baso % (Auto) Immature Gran # (Auto) Neut # (Auto) Lymph # (Auto) Bryan # (Auto) Eos # (Auto) Baso # (Auto) PT INR PTT (Actin FS) Specimen Type ARTERIAL Sample Site R RADIAL pH 7.26 L pCO2 45 pO2 291 H HCO3 19.7 L Base Excess -6.7 L Oxyhemoglobin 97.6 ABG O2 Sat (Calculated) 16.5 ABG O2 Saturation 99.7 ABG Carboxyhemoglobin 1.50 ABG Methemoglobin 0.7 Patrick Test YES A-a O2 Difference 223.0 Total Hemoglobin 11.5 Lactate 6.60 H* Blood Gas Modality VENTILATOR Vent Mode A/C Spontaneous Rate 16 FiO2 % 80.0 Tidal Volume 550 PEEP 5.0 Sodium Potassium Chloride Carbon Dioxide Anion Gap BUN Creatinine Estimated GFR/1.73 m2 BUN/Creatinine Ratio Glucose Calculated Osmolality Calcium Total Bilirubin AST ALT Alkaline Phosphatase Creatine Kinase Troponin T Total Protein Albumin Globulin Albumin/Globulin Ratio Plasma Lactate 5.1 H* Plasma/Serum Ethyl Alc Orders Category Date Time Status Cardiac Monitoring DIRECTED Care 07/21/19 21:49 Active Finger Stick Blood Sugar (ED) DIRECTED Care 07/21/19 21:49 Active Oxygen Therapy- ED Nursing DIRECTED Care 07/21/19 21:49 Active Saline Loc NOW Care 07/21/19 21:49 Active CHEST-PORTABLE [RAD] Routine Exams 07/22/19 06:00 Ordered CHEST-PORTABLE [RAD] Stat Exams 07/21/19 21:49 Completed ABG [RESP] Routine Lab 07/21/19 21:16 Completed ABG [RESP] Routine Lab 07/21/19 22:21 Completed ABG [RESP] Routine Lab 07/21/19 23:55 Ordered ALCOHOL BLOOD Stat Lab 07/21/19 21:19 Completed BLOOD CULTURE [BLDCUL] Stat Lab 07/21/19 23:40 Ordered CBC WITH ELECTRONIC DIFF [HEME] Stat Lab 07/21/19 21:19 Completed CK PROFILE [SP CHEM] Stat Lab 07/21/19 21:19 Completed COMPREHENSIVE METABOLIC PANEL [CHEM] Stat Lab 07/21/19 21:19 Completed LACTATE, PLASMA [CHEM] Stat Lab 07/21/19 23:40 Completed PROTIME WITH INR [COAG] Stat Lab 07/21/19 21:19 Completed PTT [COAG] Stat Lab 07/21/19 21:19 Completed SPUTUM CULTURE WITH GRAM STAIN [RM] Routine Lab 07/21/19 23:59 Ordered TROPONIN T Stat Lab 07/21/19 21:19 Completed URINE CULTURE [RM] Routine Lab 07/21/19 23:40 Received 0.9% Sodium Chloride Inj [Ns] 1,000 ml Med 07/21/19 21:39 Discontinued .ROUTE As directed 0.9% Sodium Chloride Inj [Ns] 160 ml Med 07/22/19 02:00 Active Cisatracurium [Nimbex] 80 mg IV As Directed mls/hr 0.9% Sodium Chloride Inj [Ns] 250 ml Med 07/21/19 22:00 Active Epinephrine 4 mg IV As Directed mls/hr 0.9% Sodium Chloride Inj [Ns] 500 ml Med 07/22/19 01:04 Active IV 1,000 mls/hr 0.9% Sodium Chloride Inj [Ns] 80 ml Med 07/22/19 02:00 Active Fentanyl 1,000 microgm IV 5 mls/hr 0.9% Sodium Chloride Inj [Ns] 80 ml Med 07/21/19 21:30 Active Fentanyl 1,000 microgm IV As Directed mls/hr Acetaminophen [Tylenol] Med 07/22/19 01:04 Active 650 mg AL Q6H PRN PRN Enoxaparin [Lovenox] Med 07/22/19 01:15 Active 30 mg SUBQ Q12H Enoxaparin [Lovenox] Med 07/22/19 01:15 Active 30 mg SUBQ Q24H Famotidine [Pepcid] Med 07/22/19 01:15 Active 20 mg IV Q12H Fentanyl Med 07/22/19 01:15 Discontinued 50 microgm IV ONCE ONE Fentanyl Med 07/21/19 21:23 Discontinued See Dose Instructions IV NOW ONE Lorazepam [Ativan] Med 07/21/19 23:28 Discontinued 1 mg IV NOW ONE Lorazepam [Ativan] Med 07/21/19 23:34 Discontinued 2 mg .ROUTE .STK-MED ONE Lorazepam [Ativan] Med 07/22/19 01:15 Active 2 mg IV Q4H Magnesium Sulfate 2 gm Med 07/22/19 01:15 Active Water, Sterile Inj [Sterile Water Inj] 50 ml IV PRN Mineral Oil/Petrolatum Op Oint [Lacri-Lube Oph Oint] Med 07/22/19 01:15 Active 0 gm BOTH EYES Q6H Nitroglycerin 50 mg/D5w Med 07/22/19 02:00 Active 50 mg in 250 ml IV As Directed mls/hr Piperacillin/Tazobactam [Zosyn] 3.375 gm Med 07/22/19 00:45 Active 0.9% Sodium Chloride Inj [Ns] 50 ml IV Q6H Potassium Chloride 40 meq Med 07/22/19 01:15 Active 0.9% Sodium Chloride Inj [Ns] 250 ml IV PRN Potassium Chloride 60 meq Med 07/22/19 01:15 Active 0.9% Sodium Chloride Inj [Ns] 500 ml IV PRN Propofol [Diprivan 1%] Med 07/22/19 00:30 Active 1,000 mg in 100 ml IV As Directed mls/hr Sodium Chloride 0.9% Med 07/22/19 01:15 Active 10 ml INJ Q12H Sodium Phosphate 10 mmol Med 07/22/19 01:15 Active 0.9% Sodium Chloride Inj [Ns] 250 ml IV PRN Sodium Phosphate 20 mmol Med 07/22/19 01:15 Active 0.9% Sodium Chloride Inj [Ns] 250 ml IV PRN Altered Mental Status Stat Oth 07/21/19 21:49 Ordered EKG [EKG] Stat Ther 07/21/19 21:49 Ordered Transfer/Admit Order [TRANSFER] Routine Transfer 07/21/19 23:56 Ordered 4 eip's total (see nurses notes for other) - patient also given 1 amp bicarb, calcium chloride - Dr. Farfan has spoken to pts family. Result Diagrams: 07/21/19 21:19 07/21/19 21:19 - REASSESSMENT Reassessment #1 Status: other (ROSC achieved after 4 rounds of Epi and CPR. The patient was place on epinephrine drip and ventilator. The family was updated of the current situation. Patient placed on fentaynl drip due to some agitation, however this has not been stopped 2/2 to some low BP. Pt continues on epi drip and IVF.) Reassessment #2 Status: other (Discussed with the hospitalist who has accepted the patient.) - EKG 1 Time of EKG reading by physician:: 22:26 EKG Read and Signed by:: Gus Farfan EKG Interpretation (*Must complete 3 of following elements*): Abnormal Rate: 104 Rhythm: accelerated junctional rhythm w/ occasional premature ventricular complexes [place]: normal QRS: normal AL Interval: normal ST Wave: normal Comments: nonspecific ST abnormality - XRAY 1 XRAY Study: Chest Impression: See EMR Report (EXAM: CHEST-PORTABLE 07/21/2019 HISTORY: Tube placement TECHNIQUE: AP portable supine at 2155 COMMENT: There is an endotracheal tube with its tip below the thoracic inlet. The inspiration is somewhat suboptimal. Considering degree of inspiration and technique there has been no significant change since 05/11/2019. IMPRESSION: No evidence of acute disease. Electronically signed by Loki Michael 07/21/2019 10:00 PM 07/21/192199 Interpreting Physician: Loki Michael MD Dictated Date/Time: 07/21/192199 cc: Gus Farfan MD; Red Burgos MD) Departure - Departure Date of Disposition Decision: 07/21/19 Time of Disposition Decision: 23:28 DIAGNOSIS: Cardiac arrest Disposition: ADMITTED INPATIENT 09 Certified Medical Emergency: Emergent Condition: Critical Referrals and Follow-Ups: Red Burgos MD [Primary Care Provider] - - Critical Care Note This patient required my direct & personal management of CC.: Yes Total Time (mins): 20 Critical Care Statement: This patient required my direct personal management to treat or rule out processes, the absence of which, could potentiallly result in sudden, clinically significant life or limb threatening deterioration. Attestation - Physician/ SLICK Attestation Patient care was provided by Advanced Practice Provider:: No The physician spent face to face time with patient:: Yes Advanced Practice Provider documentation review:: Supervising physician onsite and consulted in the evaluation and care of this patient. The physician did have a face to face encounter with the patient. This chart was documented by the indicated scribe, (Topher Sy Scribe) and accurately reflects the services I performed and decisions made by me, Gus Farfan MD, as attested by the provider's signature.
--- NOTE | 2019-07-22 01:26 | HISTORY AND PHYSICAL ---
ADDENDUM: Mr. Kenneth Carmichael was brought into our facility after choking on a piece of meat while in a restaurant. Several attempts were made to perform Heimlich maneuver to extricate the meat from his upper digestive tract without much success. EMS arrived and brought him to the hospital. On arrival here, he became cyanotic and went into asystole. After 20 minutes of CPR, the patient had ROSC. Currently on a ventilator and on epinephrine drip. We will initiate hypothermia protocol and put him on antibiotics to cover for possible aspiration amongst other things. cc: Dora Carlson MD
--- NOTE | 2019-07-22 01:39 | EKG Report ---
Test Performed on : 07/21/2019 10:26:44 PM Test Reason : FULL ARREST Blood Pressure : / mmHG Vent. Rate : 104 BPM Atrial Rate : 136 BPM P-R Int : 000 ms QRS Dur : 096 ms QT Int : 340 ms P-R-T Axes : 000 030 -18 degrees QTc Int : 447 ms Accelerated Junctional rhythm. with occasional premature ventricular complexes. Nonspecific ST abnormality Abnormal ECG When compared with ECG of 11-MAY-2019 11:50, (Unconfirmed) Junctional rhythm. has replaced Sinus rhythm. Vent. rate has increased BY 42 BPM Nonspecific T wave abnormality now evident in Inferior leads Nonspecific T wave abnormality now evident in Lateral leads Unconfirmed Result
[2019-07-22] MEDS: ZOSYN 3.375 GM in NS 50 ML IV SCH ×4 (01:55→18:00)
[2019-07-22] MEDS ORDERED: FENTANYL 1,000 MICROGM in NS 80 ML IV SCH (02:00)
[2019-07-22] MEDS ORDERED: NITROGLYCERIN 50 MG/D5W 50 MG/250 ML IV.SOLN IV SCH (02:00)
[2019-07-22 03:22] LABS: ALLEN TEST YES; BE -5.4 mmoll (-3.0-3.0); BLOOD TYPE ARTERIAL; HCO3-(ACT) 20.7 mmoll (20.0-26.0); METHB 0.8 % (0.0-1.5); O2HB 96.4 % (95.0-99.0); PCO2(98.6) 38 mmHg (35-45); PO2(98.6) 99 mmHg (60-100); SAMPLE BLOOD; SAO2 98.5 % (95.0-100.0); SRATE 16 BPM; THB 11.7 g/dL (11.5-17.4); TVOL 550 mL; pH(98.6) 7.33 (7.35-7.45)
[2019-07-22 03:24] LABS: MODALITY VENTILATOR
[2019-07-22 03:54] LABS: BASO# 0.01 X1000 (0.0-0.2); BASO% 0.1 % (0.0-0.8); EOS# 0.01 X1000 (0.0-0.7); EOS% 0.1 % (0.0-10.0); HEMATOCRIT 34.8 % (42.0-52.0); HEMOGLOBIN 11.2 g/dL (14.0-18.0); IMM GRAN# 0.05 X1000 (0.0-0.04); IMM GRAN% 0.3 % (0.0-0.5); LYMPH# 0.79 X1000 (1.2-3.4); LYMPH% 5.2 % (20.5-51.1); MCH 32.8 PG (27-31); MCHC 32.2 g/dL (33-37); MCV 102.1 FL (81-99); MONO# 1.09 X1000 (0.11-0.59); MONO% 7.2 % (1.7-9.3); MPV 9.5 FL (7.4-10.4); NEUT# 13.18 X1000 (1.4-6.5); NEUT% 87.1 % (42.2-75.2); PLT 330 X1000 (130-400); RBC 3.41 XMIL (4.7-6.1); RDW 14.6 % (11.5-14.5); WBC 15.13 X1000 (4.8-10.8)
[2019-07-22 03:58] LABS: INR 1.24; PROTIME 15.8 Seconds (11.0-16.0)
[2019-07-22] MEDS ORDERED: MORPHINE IV PRN (03:59)
[2019-07-22] MEDS: ATIVAN IV SCH ×6 (04:04→20:23)
[2019-07-22 04:07] LABS: CALCIUM 8.1 mg/dL (8.8-10.2); CREATININE 1.5 mg/dL (0.7-1.2); MAGNESIUM 1.9 mg/dL (1.5-2.7); POTASSIUM 3.7 mmol/L (3.5-5.1)
[2019-07-22 04:30] LABS: BANDS 2 % (0-1); LYMPHS 4 % (21-51); MONO 6 % (1-9); SEGS 88 % (42-75)
[2019-07-22] MEDS ORDERED: HUMULIN R IV ONE (04:45)
[2019-07-22] MEDS: LOVENOX SUBQ SCH (04:59)
[2019-07-22] MEDS: HUMULIN R 100 UNIT in NS 100 ML IV SCH ×2 (04:59→18:00)
--- NOTE | 2019-07-22 07:03 | Diag Imaging Result Doc PS360 ---
EXAM: CHEST-PORTABLE 07/22/2019 HISTORY: Ventilator Patient TECHNIQUE: AP portable semiupright at 0456 COMMENT: There is an endotracheal tube with its tip in the thoracic inlet and an NG tube which passes below the diaphragm. The lungs are not quite as well-expanded as on the previous study of 07/21/2019. There is retrocardiac opacity in the left lower lobe which was not previously present. IMPRESSION: Atelectasis versus pneumonia left lower lobe. Electronically signed by Loki Michael 07/22/2019 7:00 AM
[2019-07-22] MEDS: NIMBEX 80 MG in NS 160 ML IV SCH ×2 (07:06→15:25)
[2019-07-22 08:39] LABS: ALLEN TEST YES; BE -14.2 mmoll (-3.0-3.0); BLOOD TYPE ARTERIAL; HCO3-(ACT) 13.8 mmoll (20.0-26.0); O2(CT) 16.2 mL/dL (15.0-23.0); O2HB 94.9 % (95.0-99.0); PCO2(98.6) 47 mmHg (35-45); PO2(98.6) 89 mmHg (60-100); SAMPLE BLOOD; SAO2 97.3 % (95.0-100.0); SRATE 16 BPM; THB 12.1 g/dL (11.5-17.4); TVOL 550 mL
[2019-07-22 08:43] LABS: MODALITY VENTILATOR; pH(98.6) 7.11 (7.35-7.45)
[2019-07-22] MEDS ORDERED: SODIUM BICARBONATE 8.4% IV PUSH ONE (08:52)
[2019-07-22] MEDS ORDERED: SODIUM BICARBONATE 8.4% 100 MEQ in D5W 1,000 ML IV ONE (09:00)
[2019-07-22 09:59] LABS: CREATININE 1.6 mg/dL (0.7-1.2); POTASSIUM 3.4 mmol/L (3.5-5.1)
[2019-07-22] MEDS: EPINEPHRINE 4 MG in NS 250 ML IV SCH (10:42)
[2019-07-22] MEDS ORDERED: NS 250 ML ONE (11:30)
[2019-07-22 12:23] LABS: ALLEN TEST YES; BE -6.4 mmoll (-3.0-3.0); BLOOD TYPE ARTERIAL; HCO3-(ACT) 19.9 mmoll (20.0-26.0); METHB 0.8 % (0.0-1.5); O2(CT) 16.1 mL/dL (15.0-23.0); O2HB 96.2 % (95.0-99.0); PCO2(98.6) 37 mmHg (35-45); PO2(98.6) 88 mmHg (60-100); SAMPLE BLOOD; SAO2 98.3 % (95.0-100.0); SRATE 22 BPM; THB 11.8 g/dL (11.5-17.4); TVOL 550 mL; pH(98.6) 7.32 (7.35-7.45)
[2019-07-22 12:26] LABS: MODALITY VENTILATOR
[2019-07-22] MEDS: FENTANYL 1,000 MICROGM in NS 80 ML IV SCH (12:44)
[2019-07-22] MEDS ORDERED: NS 500 ML IV SCH (13:15)
--- NOTE | 2019-07-22 13:18 | CARDIOLOGY CONSULTATION ---
DATE: 07/22/2019 HISTORY OF PRESENT ILLNESS: Patient is intubated. Cardiorespiratory arrest. Cardiology was consulted. He is on hypothermia protocol. Mr. Carmichael was brought to the facility after choking on a piece of meat while in the restaurant. Apparently several attempts were made to perform Heimlich maneuver to extricate the meat from his upper respiratory tract. EMS arrived and brought him to the hospital. On arrival, he became cyanotic, went into asystole, and 20 minutes of CPR was performed. The patient was intubated, started on an epinephrine drip and admitted to the ICU. In addition to that, he is on IV insulin, IV propofol, IV neuromuscular blockade, and hypothermia protocol. History could not be obtained from the patient. History was obtained from the chart. PAST MEDICAL HISTORY: History of hypertension, gout and hyperlipidemia. HOME MEDICATIONS: Celexa 20, diazepam 5, tamsulosin 0.4 ,aspirin 325, Crestor 20, lisinopril 40, allopurinol 300 mg a day. ALLERGIES: He is allergic to codeine, minocycline and ranitidine. REVIEW OF SYSTEMS: Could not be obtained from the patient. PHYSICAL EXAMINATION: Vital signs: Currently, blood pressure was 160/80. Patient is off his epinephrine drip. Core temperature 33.3 degrees centigrade. Neck: Jugular venous pressure could not be assessed. Heart: First and second heart sounds were heard. There was no murmurs. Respiratory: Distant breath sounds. Central Nervous System: Could not be assessed. Abdomen: Soft. DIAGNOSTIC DATA: Electrocardiogram revealed normal sinus rhythm. Nonspecific ST-T changes. Laboratory examination revealed sodium 138, potassium 3.7, BUN 22, creatinine 1.5. Troponin 0.141. Creatine kinase 910. Plasma lactate 5.1. Glucose 187. WBC 15.13, hemoglobin 11.2, hematocrit 34.8, platelet count of 330. Blood gases this morning pH 7.3, pCO2 37, PO2 38, base excess -6.4, lactate 7.9. Earlier lactate was 10.0. Chest x-ray revealed atelectasis versus left lower lobe pneumonia. CURRENT MEDICATIONS: Include in addition to the above-mentioned, he has been started on piperacillin IV antibiotics. ASSESSMENT AND PLAN: 1. Mr. Kenneth Carmichael is a is a 68-year-old gentleman. He choked on food in a restaurant. Heimlich maneuver performed. EMS was called. Brought to the emergency room. Had cardiorespiratory arrest with asystole. Currently is intubated, was hypotensive and is on IV antibiotics in addition to the hypothermia protocol. He has IV propofol and IV neuromuscular blockade. From a cardiac standpoint, his troponin is abnormal. This is multifactorial. Given his arrest, we will get serial cardiac enzymes. 2. We will get an echocardiogram to assess cardiac and valvular function. 3. 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 4. Electrocardiogram did not reveal any acute ST elevations to suggest ischemia or infarction. 5. Chest x-ray suggestive of pneumonia. This could be secondary to aspiration as well. Thank you for the consult. We will follow hospital course. cc: MD Red Levy MD
--- NOTE | 2019-07-22 14:05 | EKG Report ---
Test Performed on : 07/22/2019 06:55:09 AM Test Reason : S/P Cardiopulomonary Arrest Blood Pressure : / mmHG Vent. Rate : 086 BPM Atrial Rate : 086 BPM P-R Int : 190 ms QRS Dur : 112 ms QT Int : 436 ms P-R-T Axes : 057 028 060 degrees QTc Int : 521 ms Normal sinus rhythm. Nonspecific ST abnormality Prolonged QT Abnormal ECG When compared with ECG of 21-JUL-2019 22:26, (Unconfirmed) Sinus rhythm. has replaced Junctional rhythm. Nonspecific T wave abnormality no longer evident in Inferior leads Nonspecific T wave abnormality no longer evident in Lateral leads QT has lengthened Confirmed by Belen MELISSA, Ramon ([id number]) on 07/24/2019 8:16:13 AM
[2019-07-22 14:35] LABS: CK INDEX 2.7 (0.0-2.5); CK-MB 23.75 ng/mL (0.0-5.0)
[2019-07-22 15:16] LABS: ALLEN TEST YES; BE -1.8 mmoll (-3.0-3.0); BLOOD TYPE ARTERIAL; HCO3-(ACT) 23.5 mmoll (20.0-26.0); METHB 0.7 % (0.0-1.5); O2(CT) 16.9 mL/dL (15.0-23.0); O2HB 96.6 % (95.0-99.0); PCO2(98.6) 33 mmHg (35-45); PO2(98.6) 107 mmHg (60-100); SAMPLE BLOOD; SAO2 98.4 % (95.0-100.0); SRATE 22 BPM; THB 12.3 g/dL (11.5-17.4); TVOL 550 mL; pH(98.6) 7.43 (7.35-7.45)
[2019-07-22 15:18] LABS: MODALITY VENTILATOR
[2019-07-22] MEDS: DOPAMINE 800 MG/D5W 800 MG/500 ML IV.SOLN IV SCH ×2 (15:33→22:41)
[2019-07-22 15:40] LABS: BASO# 0.01 X1000 (0.0-0.2); BASO% 0.1 % (0.0-0.8); HEMATOCRIT 36.9 % (42.0-52.0); HEMOGLOBIN 12.1 g/dL (14.0-18.0); IMM GRAN# 0.02 X1000 (0.0-0.04); IMM GRAN% 0.2 % (0.0-0.5); LYMPH# 0.69 X1000 (1.2-3.4); LYMPH% 6.9 % (20.5-51.1); MCH 32.6 PG (27-31); MCHC 32.8 g/dL (33-37); MCV 99.5 FL (81-99); MONO# 0.61 X1000 (0.11-0.59); MONO% 6.1 % (1.7-9.3); MPV 9.4 FL (7.4-10.4); NEUT# 8.73 X1000 (1.4-6.5); NEUT% 86.7 % (42.2-75.2); PLT 275 X1000 (130-400); RBC 3.71 XMIL (4.7-6.1); RDW 14.4 % (11.5-14.5); WBC 10.06 X1000 (4.8-10.8)
[2019-07-22 15:57] LABS: MAGNESIUM 1.9 mg/dL (1.5-2.7); PHOSPHORUS 1.1 mg/dL (2.7-4.5)
[2019-07-22 16:03] LABS: CALCIUM 8.2 mg/dL (8.8-10.2); CREATININE 1.3 mg/dL (0.7-1.2); POTASSIUM 4.1 mmol/L (3.5-5.1)
[2019-07-22 16:25] LABS: INR 1.19; PROTIME 15.3 Seconds (11.0-16.0)
[2019-07-22] MEDS: D50W SYRINGE IV SCH ×2 (18:51→20:39)
[2019-07-22 20:15] LABS: CK-MB 24.39 ng/mL (0.0-5.0)
--- NOTE | 2019-07-22 20:49 | PULMONOLOGY CONSULTATION ---
DATE: 07/22/2019 REQUESTING CLINICIAN: Dr. Red Burgos. REASON FOR CONSULTATION: Cardiopulmonary arrest. HISTORY OF PRESENT ILLNESS: Mr. 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 The patient was cyanotic when EMS arrived. The meat was removed. His oxygen saturation was in the 70s. When he arrived to the hospital, he went into asystole and required a prolonged course of CPR prior to return of spontaneous circulation. He has been admitted to the ICU and is currently on the hypothermia protocol. PAST MEDICAL HISTORY: 1. Progressive supranuclear palsy as per above. 2. Gastroesophageal reflux. 3. Hypertension. 4. Obstructive sleep apnea. 5. History of back surgery. 6. History of right shoulder surgery. SOCIAL HISTORY: No tobacco use and rare alcohol use listed. FAMILY HISTORY: Was noncontributory to current presentation. REVIEW OF SYSTEMS: Cannot be obtained. PHYSICAL EXAMINATION: General: Reveals an elderly white male on mechanical ventilation. BP 134/53, heart rate 70, respiratory rate 22, oxygen saturation 98%. HEENT: Pupils are equal and reactive. He has some bruising around the left orbit. His reports he fell earlier this week. Neck: Supple without trauma. Chest: Reveals good air entry bilaterally with occasional rhonchi. Cardiac: S1, S2. Abdomen: Soft. Extremities: Without edema. LABORATORIES: White blood count 15.13, hemoglobin 11.2, platelet count 330,000. Sodium 137, potassium 3.4, chloride 99, bicarbonate 9, BUN 23, creatinine 1.6, glucose 284. Arterial blood gas reveals a pH of 7.11, pCO2 of 47, PO2 of 89 with a lactate of 10.0. Chest x-ray reveals endotracheal tube in good position with possible retrocardiac pneumonia/atelectasis. IMPRESSION: A 68-year-old with progressive supranuclear palsy who presents with: 1. Cardiopulmonary arrest associated with an obstructed airway. 2. Acute hypoxemic respiratory failure. 3. Acute renal failure. 4. Cardiogenic shock with lactic acidosis. DISCUSSION: Complicated 68-year-old male with problems listed as above. Patients with progressive supranuclear palsy can have dysphagia and this is considered a supporting feature of the disease. They can also have some frontal/cognitive decline, which may explain why he chose to eat the large piece of meat despite several members at the table telling him not to. His prognosis was probably poor with his diagnosis of progressive supranuclear palsy and his prognosis will be significantly worse now. It is suspected that he has sustained a significant anoxic brain injury. His prognosis for recovery is not good. PLAN: 1. Continue hypothermia protocol. 2. Fluid boluses for hypotension. 3. Add fentanyl for sedation while on a paralytic. 4. Routine gastric acid suppression. 5. DVT prophylaxis. 6. Prognosis is poor. Will have ongoing end of life discussions with the family. TIME SPENT: In critical care management 30+ minutes. cc: MD Red Franco MD
[2019-07-22 21:41] LABS: ALLEN TEST YES; BE 0.3 mmoll (-3.0-3.0); BLOOD TYPE ARTERIAL; HCO3-(ACT) 25.2 mmoll (20.0-26.0); METHB 0.4 % (0.0-1.5); O2(CT) 16.9 mL/dL (15.0-23.0); PCO2(98.6) 31 mmHg (35-45); PO2(98.6) 110 mmHg (60-100); SAMPLE BLOOD; SAO2 98.6 % (95.0-100.0); SRATE 22 BPM; THB 12.3 g/dL (11.5-17.4); TVOL 550 mL; pH(98.6) 7.48 (7.35-7.45)
[2019-07-22 21:42] LABS: MODALITY VENTILATOR
[2019-07-22 21:51] LABS: CALCIUM 8.2 mg/dL (8.8-10.2); CREATININE 1.2 mg/dL (0.7-1.2); POTASSIUM 3.5 mmol/L (3.5-5.1)
--- NOTE | 2019-07-22 22:29 | HISTORY AND PHYSICAL ---
PRIMARY CARE PROVIDER: Dr. Red Burgos. DATE AND TIME: 07/21/2019 at 2345. CHIEF COMPLAINT: Choking and cardiopulmonary arrest. HISTORY OF PRESENT ILLNESS: Mr. Dover is a 68-year-old, male, who does have a past medical history most notable for hypertension, obstructive sleep apnea, GERD, gout, diet- controlled diabetes mellitus, and recent neurological diagnosis of progressive supranuclear palsy. The patient's states that for approximately a year now, they have been trying to diagnose what his neurological condition is. She states that this condition causes him to have balance and equilibrium problems. He does have very frequent falls. She states normally that he falls least once a day and does have some bruises on his right chest. She did state that, I believe it was yesterday, as in July 20, that he had a fall and he landed kind of hard on his bottom, and was having some low back pain. She said they were seen in the ER at [facility], had a x-ray and everything was found to be okay. She states that other than this, the patient has not had any other complaints or symptoms. He had not been sick recently either. His states that they were at [facility] here in [place], and were eating when the patient took a bite of steak and did get choked on it. He did begin actively choking there in the restaurant. There was a nurse that was in the restaurant that did attempt to perform the Heimlich maneuver, though the patient did ultimately lose consciousness. She states that the nurse with the help of some of the people, they were able to lower him down to the ground, that he did not fall and did not hit his head. His reports that when they did call EMS, that the patient did have a pulse and was still able to breathe some on his own. EMS reported to the ER staff that when they arrived on scene, the patient was completely purple in color. In the ambulance en route to the hospital with use of suction EMS was able to get a big piece of steak out of his throat. Unfortunately, he still remained hypoxic. He did eventually become unresponsive, was not breathing, required assisted ventilation, and ultimately went into asystole and CPR was initiated. According to reports from the ER nurse, the patient was down without a pulse for approximately 25 minutes, until he did have return of ROSC. During this time, the patient was intubated by the ER physician. He was found to be hypotensive and was placed on an epinephrine drip. He was receiving Ativan and fentanyl for assistance with sedation, though the patient was still biting at the ET tube. During the time of my examination, I did switch his sedation over to propofol. Since that time, the patient has been relaxing comfortably. Dr. Carlson, after evaluating the patient, did want him to be placed on the post-cardiac arrest therapeutic hypothermia protocol. This has been initiated. Given that there is a high likelihood the patient aspirated, we will go ahead and place him on antibiotic coverage of Zosyn. Blood cultures and sputum culture have been ordered. The patient's initial arterial blood gases did show respiratory acidosis, though since being intubated, his ABGs have improved remarkably. Chemistries revealed an acute kidney injury. Initial CK and troponin were negative. EKG performed in the ER did show an accelerated junctional rhythm with occasional premature ventricular complexes at a rate of 104 with a QTc of 447. The patient will be placed in the ICU for further treatment and evaluation. REVIEW OF SYSTEMS: A 14-point review of systems was conducted with the patient and all were negative, except for pertinent positives mentioned above in HPI. PAST MEDICAL HISTORY: 1. History of progressive supranuclear palsy which causes the patient to have frequent falls. 2. Hypertension. 3. Obstructive sleep apnea. 4. Gastroesophageal reflux disease. 5. Gout. 6. Diabetes mellitus for which his states is currently diet controlled. PAST SURGICAL HISTORY: 1. History of laminectomy and foraminectomy of L4 to S1. 2. History of removal of parathyroid adenomas. 3. Left knee surgery. 4. Right shoulder rotator cuff repair surgery. SOCIAL HISTORY: The patient is a former smoker. She reports that he occasionally will have an alcoholic drink. There is no known history of illicit drug use. His , Kylie, was present at bedside during my examination. FAMILY HISTORY: Positive for his mother having history of Alzheimer's disease. His father had a history of heart disease and did have a myocardial infarction. REVIEW OF SYSTEMS: At this time, due to the patient's current condition and mentation, we are unable to perform review of systems. ALLERGIES: Patient has allergies to Zantac, codeine, minoxidil, and adhesives. HOME MEDICATIONS: 1. Allopurinol 300 mg p.o. daily. 2. Aspirin 325 mg p.o. at bedtime. 3. Celexa 20 mg p.o. daily. 4. Diazepam 5 mg p.o. daily. 5. Glycopyrrolate 1 mg p.o. b.i.d. 6. Lisinopril 40 mg p.o. every evening. 7. Crestor 20 mg p.o. daily. 8. Flomax 0.4 mg p.o. every evening. 9. Ambien 0.5 mg p.o. at bedtime p.r.n. for sleep. DIAGNOSTIC DATA/LABORATORY RESULTS: White blood cell count is 11,530, hemoglobin 11.8, hematocrit 37, platelet count is 351,000. PT was 1.29. Sodium 139, potassium 4.1, serum bicarbonate is 20, BUN 17, creatinine 1.3, glucose 247, calcium is 8.7, magnesium is 1.9. Total bilirubin is 1.04, AST 64, ALT is 34, CK 202. Troponin less than 0.01. Initial lactate was 5.1. As previously mentioned, arterial blood gases prior to intubation showed respiratory acidosis. Patient had a pH of 6.9, pCO2 was 108, PO2 was 122. After intubation, pH had improved to 7.26 and pCO2 was 45. EKG as previously mentioned, did show an accelerated junctional rhythm with occasional PVCs at a rate of 104. Initial chest x-ray did not show any abnormalities. It did show good position of the ET tube. The repeat chest x-ray later on this morning, did show possible atelectasis versus pneumonia in the left lower lobe. PHYSICAL EXAMINATION: VITAL SIGNS: Temperature 96.8 degrees, heart rate 90, respirations 22, blood pressure is 100/43, with a MAP of 67, oxygen saturation is 96% on mechanical ventilator at 100% FiO2. GENERAL: Mr. Carmichael is a 68-year-old, male, who is resting on the ER stretcher. Upon my initial evaluation, he was still requiring more sedation. The patient was biting at the ET tube. Since replacing his sedation with propofol, he is much more comfortable at this time. Although he did not have any corneal reflexes, he did have good pupillary response. Pupils were 3 mm bilaterally, were equal, round, reactive, and were brisk. He was localizing to pain. HEENT: Oral mucosa, the patient did have some dried blood noted to his mouth, though due to the ET tube, could not do a full assessment, the oral mucosa was moist. NECK: Supple. Trachea midline. No JVD noted. CARDIOVASCULAR: Patient has S1-S2 present. No murmurs, gallops, rubs appreciated, with a regular rate and rhythm. PULMONARY: Patient has symmetrical chest expansion bilaterally. He does have some slight crackles in bilateral bases. Also, the patient did have some bruising noted to his right chest. These were in various stages of healing, and the patient's states this is secondary to his falls from his neurological condition. This did not occur tonight during his choking episode. ABDOMEN: Soft and nondistended. Bowel sounds are present in all 4 quadrants, are slightly hypoactive. The patient did not have any facial grimacing, guarding, or localization of pain upon palpation of his abdomen. EXTREMITIES: No cyanosis or edema noted. The patient had capillary refill less than 3. Radial and pedal pulses were 2+ bilaterally. INTEGUMENTARY: The patient's skin color is slightly pale, dry, and intact. NEUROLOGICAL: The patient's neurological exam is limited at this time due to he has received sedation. Though he was reportedly localizing to pain just prior to starting the propofol, he was still somewhat agitated, biting on the ET tube. ASSESSMENT AND PLAN: 1. Cardiopulmonary arrest. This is likely secondary to foreign body aspiration. As previously mentioned, the patient was eating steak, became choked, did ultimately become unresponsive. Even though EMS was able to remove a large piece of steak with suctioning, the patient still remained hypoxic, did stop breathing, and did suffer cardiopulmonary arrest with pulseless electrical activity. He was down for a period of reportedly 25 minutes before return of spontaneous circulation was obtained. He has since been started on the post-cardiac arrest therapeutic hypothermia protocol. We have ordered for him to have repeat cardiac enzymes, echocardiogram in the morning, and repeat EKG. Cardiology and Pulmonology both have been consulted. We will repeat his chemistries as well as CBC and arterial blood gases later on this morning. He did receive a total of 3 L normal saline bolus and still is requiring pressor of epinephrine drip at this time. We will continue further treatment per the hypothermia protocol. We will await consultation by Cardiology and Pulmonology, continue to follow. 2. Foreign body aspiration. This is likely secondary to choking on a piece of steak. There was concern for possible aspiration. The patient has been placed on antibiotics for this as well of Zosyn. Blood cultures and sputum culture have been obtained. 3. Hypotension. The patient did receive 3 L normal saline bolus and is on an epinephrine drip at this time. His blood pressures have improved. 4. Acute kidney injury. This is likely secondary to hypothermia. His creatinine at this time as 1.3. Will continue with pressors and fluids. We will avoid nephrotoxic medications and renally dose medicines as necessary. 5. Deep vein thrombosis prophylaxis is currently being provided with Lovenox. 6. Resuscitation status. I did discuss with his at bedside, her name is Kylie, her continued wishes for his resuscitation status. She does want him to remain a full code. She does want chest compressions, defibrillation, to continue with intubation, any emergency medications that are necessary. The patient has been placed in the ICU. As previously mentioned, he is on hypothermia protocol. He is a Dr. Burgos patient and Dr. Burgos will be taking over his care in the morning. Further orders and recommendations pending hospital course, diagnostic studies, and physician evaluation. Dictated by BELLO Hall for Dora Carlson MD cc: MD Red Maynard MD Independent exam and assessment done by mt. Hypothermia protocol instituted to preserve brain function. [facility]
[2019-07-23] MEDS: ZOSYN 3.375 GM in NS 50 ML IV SCH ×4 (00:21→18:24)
[2019-07-23] MEDS: NIMBEX 80 MG in NS 160 ML IV SCH ×2 (00:21→07:58)
[2019-07-23] MEDS: SODIUM CHLORIDE 0.9% INJ SCH ×2 (00:47→12:41)
[2019-07-23] MEDS: LOVENOX SUBQ SCH (00:47)
[2019-07-23] MEDS: PEPCID IV SCH ×2 (00:47→12:41)
[2019-07-23] MEDS: ATIVAN IV SCH ×3 (00:47→09:08)
[2019-07-23] MEDS: LACRI-LUBE OPH OINT BOTH EYES SCH ×2 (01:05→06:24)
[2019-07-23] MEDS: D50W SYRINGE IV SCH ×3 (01:26→07:01)
[2019-07-23 02:02] LABS: CK INDEX 3.4 (0.0-2.5); CK-MB 23.48 ng/mL (0.0-5.0)
[2019-07-23 04:03] LABS: ALLEN TEST YES; BE -0.9 mmoll (-3.0-3.0); BLOOD TYPE ARTERIAL; HCO3-(ACT) 24.2 mmoll (20.0-26.0); METHB 0.9 % (0.0-1.5); O2(CT) 17.5 mL/dL (15.0-23.0); O2HB 96.5 % (95.0-99.0); PCO2(98.6) 27 mmHg (35-45); PO2(98.6) 119 mmHg (60-100); SAMPLE BLOOD; SAO2 98.3 % (95.0-100.0); SRATE 22 BPM; THB 12.8 g/dL (11.5-17.4); TVOL 550 mL
[2019-07-23 04:04] LABS: MODALITY VENTILATOR
[2019-07-23 04:05] LABS: BASO# 0.01 X1000 (0.0-0.2); BASO% 0.1 % (0.0-0.8); EOS# 0.04 X1000 (0.0-0.7); EOS% 0.5 % (0.0-10.0); HEMATOCRIT 36.3 % (42.0-52.0); HEMOGLOBIN 12.4 g/dL (14.0-18.0); IMM GRAN# 0.02 X1000 (0.0-0.04); IMM GRAN% 0.2 % (0.0-0.5); LYMPH# 0.75 X1000 (1.2-3.4); LYMPH% 8.5 % (20.5-51.1); MCHC 34.2 g/dL (33-37); MCV 96.5 FL (81-99); MONO% 5.7 % (1.7-9.3); MPV 9.7 FL (7.4-10.4); NEUT# 7.46 X1000 (1.4-6.5); PLT 269 X1000 (130-400); RBC 3.76 XMIL (4.7-6.1); RDW 13.9 % (11.5-14.5); WBC 8.78 X1000 (4.8-10.8)
[2019-07-23 04:19] LABS: INR 1.16
[2019-07-23 04:25] LABS: AGAP 15; BUN 18 mg/dL (8-22); CALCIUM 8.1 mg/dL (8.8-10.2); CHLORIDE 103 mmol/L (98-107); COSMO 279; ESTIMATED GFR > 60; GLUCOSE 127 mg/dL (70-104); SODIUM 138 mmol/L (136-145); TCO2 20 mmol/L (25-35)
[2019-07-23 04:43] LABS: MAGNESIUM 1.8 mg/dL (1.5-2.7); PHOSPHORUS 1.9 mg/dL (2.7-4.5)
[2019-07-23] MEDS: FENTANYL 1,000 MICROGM in NS 80 ML IV SCH (06:16)
--- NOTE | 2019-07-23 07:15 | Diag Imaging Result Doc PS360 ---
EXAM: CHEST-PORTABLE 07/23/2019 HISTORY: Ventilator management TECHNIQUE: AP portable upright at 0459 COMMENT: There is an endotracheal tube with its tip at the thoracic inlet and an NG tube with its tip below the diaphragm. There is hazy opacity in both lung bases. There is cardiomegaly. Compared to 07/22/2019 the basilar opacities are slightly worse. IMPRESSION: Slightly worsened pulmonary edema. Electronically signed by Loki Michael 07/23/2019 7:13 AM
[2019-07-23 07:25] LABS: CK INDEX 3.6 (0.0-2.5); CK-MB 21.57 ng/mL (0.0-5.0)
--- NOTE | 2019-07-23 08:50 | EKG Report ---
Test Performed on : 07/23/2019 06:57:54 AM Test Reason : arrest Blood Pressure : / mmHG Vent. Rate : 059 BPM Atrial Rate : 059 BPM P-R Int : 184 ms QRS Dur : 100 ms QT Int : 508 ms P-R-T Axes : 053 015 038 degrees QTc Int : 502 ms Sinus bradycardia. Prolonged QT Abnormal ECG When compared with ECG of 22-JUL-2019 06:55, (Unconfirmed) No significant change was found Confirmed by Belen MELISSA, Ramon ([id number]) on 07/24/2019 8:18:25 AM
[2019-07-23 09:21] LABS: ALLEN TEST YES; BE -1.7 mmoll (-3.0-3.0); BLOOD TYPE ARTERIAL; HCO3-(ACT) 23.6 mmoll (20.0-26.0); METHB 0.6 % (0.0-1.5); O2(CT) 16.6 mL/dL (15.0-23.0); O2HB 96.3 % (95.0-99.0); PCO2(98.6) 30 mmHg (35-45); PO2(98.6) 88 mmHg (60-100); SAMPLE BLOOD; SAO2 98.1 % (95.0-100.0); SRATE 22 BPM; THB 12.2 g/dL (11.5-17.4); TVOL 550 mL; pH(98.6) 7.46 (7.35-7.45)
[2019-07-23 09:22] LABS: MODALITY VENTILATOR
[2019-07-23 09:40] LABS: AGAP 16; BUN 17 mg/dL (8-22); CALCIUM 8.2 mg/dL (8.8-10.2); CHLORIDE 107 mmol/L (98-107); COSMO 289; CREATININE 1.1 mg/dL (0.7-1.2); ESTIMATED GFR > 60; GLUCOSE 104 mg/dL (70-104); POTASSIUM 3.3 mmol/L (3.5-5.1); SODIUM 144 mmol/L (136-145); TCO2 21 mmol/L (25-35)
[2019-07-23 10:23] LABS: URINE SOURCE CATH
[2019-07-23 10:31] LABS: BILIRUBIN URINE NEGATIVE (NEGATIVE); BLOOD URINE LARGE (NEGATIVE); COLOR ORANGE; GLUCOSE URINE 70 mg/dL (NEGATIVE); KETONE URINE TRACE mg/dL (NEGATIVE); LEUKOCYTES URINE NEGATIVE (NEGATIVE); NITRITE URINE NEGATIVE (NEGATIVE); PROTEIN URINE 30 mg/dL (NEGATIVE); SP GRAVITY URINE 1.032; TURBIDITY URINE HAZY (CLEAR); UROBILINOGEN URINE NORMAL (NORMAL)
[2019-07-23 10:32] LABS: UR EPITHELIAL CELLS <10 /HPF (<10); URINE BACTERIA NEGATIVE /HPF; URINE RBC TNTC /HPF (<10)
--- NOTE | 2019-07-23 11:33 | ECHO REPORT ---
ORDER DATE: 07/22/2019 INTERPRETING PHYSICIAN: Dr. Rashaad Madrigal ECHOCARDIOGRAPHIC MEASUREMENTS: 1. Interventricular septum: 1.5 cm. 2. Left ventricular posterior wall: 1.1 cm. 3. Diastolic diameter: 4.6 cm. 4. Technically, suboptimal study. Very poor acoustic window. Measurements could not be accurately obtained. 5. Aorta: 3.5 cm. SUMMARY OF THE 2-DIMENSIONAL IMAGIN. Pulmonic valve not well visualized. 1. Aortic valve leaflets not well visualized. 2. Mitral valve was normal. 3. Tricuspid valve was normal. 4. There was trace to mild mitral regurgitation. Peak velocity across the aortic valve less than 2 m/sec. There is no aortic stenosis or regurgitation. There is trace tricuspid regurgitation. Peak velocity across the tricuspid valve less than 2 m/sec. 5. Optison was used to assess left ventricular systolic function. Normal left ventricular cavity size. There is left ventricular hypertrophy. Estimated ejection fraction of 65 to 70 percent. There is no pericardial effusion or obvious intracardiac mass or thrombus seen. cc: MD Red Levy MD
[2019-07-23] MEDS: ATIVAN IV PRN ×4 (12:41→21:36)
[2019-07-23] MEDS: NS 1,000 ML IV SCH (12:41)
[2019-07-23] MEDS ORDERED: LEVOPHED 8 MG in D5 1/2 NS 250 ML IV SCH (15:45)
[2019-07-23 16:00] LABS: CALCIUM 7.8 mg/dL (8.8-10.2); CREATININE 1.3 mg/dL (0.7-1.2); MAGNESIUM 1.6 mg/dL (1.5-2.7); PHOSPHORUS 3.2 mg/dL (2.7-4.5); POTASSIUM 4.7 mmol/L (3.5-5.1)
[2019-07-23] MEDS: DOPAMINE 800 MG/D5W 800 MG/500 ML IV.SOLN IV SCH (16:10)
--- NOTE | 2019-07-23 21:30 | PULMONOLOGY PROGRESS NOTE ---
DATE: 07/23/2019 SUBJECTIVE: The patient has completed his hypothermia protocol. He is currently on paralytic and sedation. OBJECTIVE: Vital Signs: Current temperature 93.3 degrees, blood pressure 130/64, heart rate 57, respiratory rate 22, oxygen saturation 99%. HEENT: Pupils are midpoint and reactive. Oropharynx appears clear. Neck: Supple. Chest: Reveals rhonchi bilaterally. Cardiac: S1, S2. Abdomen: Obese and soft with diminished bowel sounds. Extremities: Reveal trace to 1+ peripheral edema. LABORATORIES: Sputum culture reveals normal roni. Arterial blood gas reveals a pH of 7.46, pCO2 of 30, PO2 of 88. Sodium 144, potassium 3.3, chloride 107, bicarbonate 21, BUN 17, creatinine 1.1 Chest x-ray reveals cardiomegaly and pulmonary edema. IMPRESSION: A 68-year-old with: 1. Cardiopulmonary arrest due to an aspiration on a piece of meat. 2. Acute hypoxemic respiratory failure. 3. Acute renal failure with continued improvement in renal numbers. 4. Progressive supranuclear palsy with decreasing performance status. DISCUSSION: A 68-year-old with problems outlined above. He has completed a hypothermia protocol. The patient had a significant down time prior to return of spontaneous circulation. His prognosis is expected to be extremely poor. PLAN: 1. Discontinue paralytic. 2. Continue p.r.n. Ativan for seizure control. 3. Continue mechanical ventilation. 4. Ask Neurology to evaluate his case and prognosis tomorrow. 5. Prognosis appears to be extremely poor. Ongoing end of life discussions are being held with the family. TIME: Spent in critical care management, 30+ minutes. cc: MD Red Franco MD
[2019-07-23] MEDS: TYLENOL PR PRN (22:10)
[2019-07-24] MEDS: LOVENOX SUBQ SCH (00:14)
[2019-07-24] MEDS: ZOSYN 3.375 GM in NS 50 ML IV SCH ×4 (00:14→17:50)
[2019-07-24] MEDS: NS 1,000 ML IV SCH ×4 (00:15→16:29)
[2019-07-24] MEDS: ATIVAN IV PRN ×3 (00:15→05:56)
[2019-07-24] MEDS: PEPCID IV SCH ×2 (00:15→12:19)
[2019-07-24] MEDS: SODIUM CHLORIDE 0.9% INJ SCH ×2 (00:15→12:25)
[2019-07-24 04:32] LABS: ALLEN TEST YES; BE -3.3 mmoll (-3.0-3.0); BLOOD TYPE ARTERIAL; HCO3-(ACT) 22.3 mmoll (20.0-26.0); METHB 1.1 % (0.0-1.5); O2(CT) 20.2 mL/dL (15.0-23.0); O2HB 95.5 % (95.0-99.0); PCO2(98.6) 40 mmHg (35-45); PO2(98.6) 94 mmHg (60-100); SAMPLE BLOOD; SAO2 97.8 % (95.0-100.0); SRATE 15 BPM; TVOL 500 mL; pH(98.6) 7.35 (7.35-7.45)
[2019-07-24 04:34] LABS: MODALITY VENTILATOR
[2019-07-24 04:50] LABS: BASO# 0.02 X1000 (0.0-0.2); BASO% 0.2 % (0.0-0.8); EOS# 0.01 X1000 (0.0-0.7); EOS% 0.1 % (0.0-10.0); HEMATOCRIT 35.4 % (42.0-52.0); HEMOGLOBIN 11.7 g/dL (14.0-18.0); IMM GRAN# 0.02 X1000 (0.0-0.04); IMM GRAN% 0.2 % (0.0-0.5); LYMPH# 1.01 X1000 (1.2-3.4); LYMPH% 7.7 % (20.5-51.1); MCH 33.1 PG (27-31); MCHC 33.1 g/dL (33-37); MONO# 1.14 X1000 (0.11-0.59); MONO% 8.7 % (1.7-9.3); MPV 10.4 FL (7.4-10.4); NEUT# 10.84 X1000 (1.4-6.5); NEUT% 83.1 % (42.2-75.2); PLT 289 X1000 (130-400); RBC 3.54 XMIL (4.7-6.1); RDW 14.9 % (11.5-14.5); WBC 13.04 X1000 (4.8-10.8)
[2019-07-24 05:34] LABS: CALCIUM 7.4 mg/dL (8.8-10.2); CREATININE 1.4 mg/dL (0.7-1.2); POTASSIUM 4.7 mmol/L (3.5-5.1)
[2019-07-24] MEDS: TYLENOL PR PRN (05:57)
--- NOTE | 2019-07-24 07:50 | Diag Imaging Result Doc PS360 ---
EXAM: CHEST-PORTABLE INDICATION: Ventilator management TECHNIQUE: One view COMPARISON: 07/23/2019 FINDINGS: Support tubes and lines are in stable positions. Mild bibasilar opacities most compatible with pulmonary edema are approximately stable. No new consolidation is identified. Cardiac silhouette is stable. IMPRESSION: Stable chest. Electronically signed by Mc Stein 07/24/2019 7:48 AM
[2019-07-24] MEDS ORDERED: LASIX IV ONE (08:30)
[2019-07-24] MEDS ORDERED: D50W SYRINGE IV PRN (08:39)
[2019-07-24 15:43] LABS: CK INDEX 0.7 (0.0-2.5); CK-MB 28.75 ng/mL (0.0-5.0)
[2019-07-24] MEDS ORDERED: PRILOSEC PO ONE (18:47)
--- NOTE | 2019-07-24 19:42 | CONSULTATION ---
DATE OF CONSULTATION: 07/24/2019 REASON FOR CONSULT: Anoxic injury. HISTORY OF PRESENT ILLNESS: This is a 68-year-old male who has a diagnosis of PSP, diabetes and hypertension. He was at a restaurant Wednesday evening when he choked on a piece of steak. Heimlich maneuver was attempted though unsuccessful. Apparently, he was cyanotic by the time EMS arrived. They were able to remove the food from his throat. He remained hypoxic with a saturation in the 70s and when he arrived in the emergency department he went into asystole and had return of spontaneous circulation achieved after 4 rounds of epi and CPR. He was placed on a hypothermic protocol and was rewarmed to body temperature midday yesterday. At that time paralytic and propofol were discontinued. He has received lorazepam, I believe 2 mg x3 overnight, the last 1 being at 6 a.m. this morning. He has not come to as of this afternoon and neurology has been consulted to evaluate. There are reports of intermittent twitching activity either involving the face or left upper extremity, since he was re-warmed. PAST MEDICAL HISTORY: PSP with very frequent falls backwards, hypertension, BRIA, GERD, gout, apparent diabetes diet controlled. SOCIAL HISTORY: Former smoker. Occasional alcohol. No illicits. He is . FAMILY HISTORY: Mother with Alzheimer disease. Father with heart disease. ALLERGIES: Listed to codeine, minocycline, and ranitidine. CURRENT MEDICATIONS: Reviewed in the chart as per above. REVIEW OF SYSTEMS: Unobtainable. PHYSICAL EXAMINATION: Vital Signs: Temperature 99.7 degrees, blood pressure 127/62, pulse 80s and he is on the ventilator. Respirations 18, breathing over the ventilator. General: Mr. Carmichael is supine in bed. He is intubated on the ventilator. His eyes are half open. There is no response to loud voice. There is brief subtle grimace to noxious sternal rub. No commands. HEENT: Pupils are equal, 3 mm and reactive to bright light OU. There is subtle horizontal eye movement with passive head turning. Corneal reflexes weak on the left, intact on the right. No consistent blink to threat. Face appears symmetric at rest. There is rapid tremulous movement of the left upper extremity with noxious stimuli applied in the area. On the right upper extremity, there is subtle movement of about 1/5 to noxious stimuli. In the lower extremities to noxious stimuli, there appears to be some withdrawal bilaterally. Reflexes are brisk, symmetric throughout. Tone is increased throughout and states that is his baseline. No ankle clonus. Plantar response is silent. DIAGNOSTICS: No brain imaging this hospitalization. LABORATORY DATA: White count of 13 today. [place] to the vital signs. Normal sodium. BUN 23, creatinine 1.4. Blood glucose low 100. Calcium is 7.4. Urinalysis noted. ASSESSMENT AND PLAN: 1. Status post cardiopulmonary arrest. Secondary to choking incident/aspiration. Underwent therapeutic hypothermia protocol and was rewarmed to temperature midday 07/23/2019. 2. Global encephalopathy without definite focal feature today. Multifactorial. Cannot rule out anoxic brain injury. Recommend head CT once able. We will also need to evaluate for subclinical seizure activity and I will order a routine EEG now. Continue limiting sedating medications as able. 3. Progressive supranuclear palsy, noted. cc: MD Red Travis MD MTDD
[2019-07-24 21:43] LABS: CK INDEX 0.5 (0.0-2.5); CK-MB 26.03 ng/mL (0.0-5.0)
[2019-07-25] MEDS: ZOSYN 3.375 GM in NS 50 ML IV SCH ×4 (00:59→18:14)
[2019-07-25] MEDS: PEPCID IV SCH ×2 (00:59→12:31)
[2019-07-25] MEDS: LOVENOX SUBQ SCH (00:59)
[2019-07-25] MEDS: SODIUM CHLORIDE 0.9% INJ SCH ×2 (01:00→12:43)
[2019-07-25 04:17] LABS: ALLEN TEST YES; BE -1.2 mmoll (-3.0-3.0); BLOOD TYPE ARTERIAL; METHB 0.5 % (0.0-1.5); O2(CT) 14.8 mL/dL (15.0-23.0); O2HB 96.6 % (95.0-99.0); PCO2(98.6) 32 mmHg (35-45); PO2(98.6) 90 mmHg (60-100); SAMPLE BLOOD; SAO2 98.5 % (95.0-100.0); SRATE 15 BPM; THB 10.8 g/dL (11.5-17.4); TVOL 500 mL; pH(98.6) 7.45 (7.35-7.45)
[2019-07-25 04:20] LABS: MODALITY VENTILATOR
[2019-07-25] MEDS: NS 1,000 ML IV SCH ×2 (04:29→18:41)
[2019-07-25 06:10] LABS: BASO# 0.03 X1000 (0.0-0.2); BASO% 0.2 % (0.0-0.8); EOS# 0.03 X1000 (0.0-0.7); EOS% 0.2 % (0.0-10.0); HEMATOCRIT 32.3 % (42.0-52.0); HEMOGLOBIN 10.6 g/dL (14.0-18.0); IMM GRAN# 0.03 X1000 (0.0-0.04); IMM GRAN% 0.2 % (0.0-0.5); LYMPH# 1.24 X1000 (1.2-3.4); LYMPH% 10.1 % (20.5-51.1); MCH 32.9 PG (27-31); MCHC 32.8 g/dL (33-37); MCV 100.3 FL (81-99); MONO# 1.32 X1000 (0.11-0.59); MONO% 10.8 % (1.7-9.3); NEUT# 9.58 X1000 (1.4-6.5); NEUT% 78.5 % (42.2-75.2); PLT 283 X1000 (130-400); RBC 3.22 XMIL (4.7-6.1); RDW 14.6 % (11.5-14.5); WBC 12.23 X1000 (4.8-10.8)
[2019-07-25 06:32] LABS: ALBUMIN 2.8 g/dL (3.5-5.0); CALCIUM 7.4 mg/dL (8.8-10.2); CREATININE 1.4 mg/dL (0.7-1.2); MAGNESIUM 1.8 mg/dL (1.5-2.7); POTASSIUM 4.3 mmol/L (3.5-5.1); TOTAL BILIRUBIN 1.3 mg/dL (0.20-1.00); TOTAL PROTEIN 5.7 g/dL (6.3-8.3)
--- NOTE | 2019-07-25 06:32 | Diag Imaging Result Doc PS360 ---
CHEST-PORTABLE - 07/25/2019 INDICATION: Ventilator management COMPARISON: 07/24/2019 FINDINGS: Support lines and tubes are stable and in good position. Stable severely low lung volumes. Stable cardiomegaly and pulmonary vascular congestion. There is probably mild pulmonary edema. IMPRESSION: No change from prior. Electronically signed by Dagoberto Coughlin 07/25/2019 6:30 AM
--- NOTE | 2019-07-25 06:49 | Diag Imaging Result Doc PS360 ---
CT HEAD W/O CONTRAST - 07/25/2019 INDICATION: s/p cardiopulmonary arrest COMPARISON: 05/11/2019 FINDINGS: The ventricles and sulci are normal in size and contour. No intracranial mass or hemorrhage. The skull is intact. The sinuses mastoids and middle ears are clear. IMPRESSION: Negative exam. This exam was performed using automated exposure control, adjustment of mA or kV according to patient size, and/or use of iterative reconstruction technique Electronically signed by Dagoberto Coughlin 07/25/2019 6:47 AM
--- NOTE | 2019-07-25 08:09 | PULMONOLOGY PROGRESS NOTE ---
DATE: 07/24/2019 SUBJECTIVE: The patient's eyes are partially open. He does not respond to voice. He does respond to painful stimuli with a grimace. He does have a spontaneous respiratory effort. OBJECTIVE: Vital Signs: Maximum temperature in the last 24 hours 99.6 degrees, blood pressure 131/71, heart rate 94, respiratory rate 18, oxygen saturation 100%. HEENT: Pupils are midpoint and reactive. Oropharynx appears. Neck: Supple. Chest: Reveals occasional crackles bilaterally. Cardiac: S1, S2. Abdomen: Soft without hepatosplenomegaly. Extremities: Reveal no edema. LABORATORY DATA: Chest x-ray reveals mild vascular prominence. Difficult to see behind the left heart border. Microbiology reveals no B urine growth and normal roni from the sputum. White blood count 13.0, hemoglobin 11.7, platelet count 289,000. Arterial blood gas reveals pH 7.30, pCO2 of 40, PO2 of 94. Sodium 138, potassium 4.0, chloride 103, bicarbonate 21, BUN 23, creatinine 1.4. IMPRESSION: A 68-year-old with: 1. Cardiopulmonary arrest following aspiration of meat. 2. Acute hypoxemic respiratory failure. 3. Acute renal failure with stabilization of renal function. 4. Progressive nuclear palsy with recent decline in performance status. PLAN: 1. Appreciate Neurology's input. We will obtain CT scan of the brain tomorrow. 2. Continue p.r.n. Ativan for seizure control and limit sedation as possible. 3. Continue with ventilatory support. 4. Guarded prognosis. cc: MD Red Franco MD
[2019-07-25] MEDS: MORPHINE IV PRN (15:54)
--- NOTE | 2019-07-25 20:38 | PROGRESS NOTE ---
DATE: 07/25/2019 SUBJECTIVE: No major overnight events. OBJECTIVE: Vital signs: Reviewed in the chart. Blood pressure 125/62, pulse 88. He has been febrile now. General: His exam is similar to yesterday with the following improvements noted. He has more obvious nonpurposeful upper extremity movement to noxious stimuli today. I did witness some subtle lower extremity movement spontaneously as well. The lower extremities have a movement that resembles triple flexion bilaterally, but with repeated attempts, it appears more sustained and it is possible that this may actually be a form of withdraw. Otherwise, the exam is unchanged. DIAGNOSTICS: A head CT performed this morning did not show acute findings. EEG: personally reviewed. The study was technically limited due to persistent myogenic artifact and heavy filtering was utilized in order to view the study. It appears to show a relative burst suppression pattern. LABS: Reviewed in the chart. ASSESSMENT AND PLAN: 1. Status post cardiopulmonary arrest and hypothermia protocol. Rewarmed to body temperature midday 07/23/2019 and paralytic/propofol were discontinued at that time. Had received prns. 2. Global encephalopathy without definite focal feature. Cannot rule out hypoxic injury. Exam showed slight improvement today, which may also be a reflection of less sedative medications. EEG was technically limited but did appear to show a relative burst suppression pattern. This could be seen in the setting of prolonged sedative effect, or could be an indication of severe brain injury. We will likely repeat the EEG for comparison. Continue limiting all sedating medications as able and follow clinically. CT was negative. 3. Progressive supranuclear palsy, noted. His overall prognosis was poor even before his arrest. cc: MD Red Travis MD [facility]
--- NOTE | 2019-07-25 21:36 | EEG REPORT ---
DATE: 07/24/2019 REFERRING: Cynthia Moctezuma MD BROKE BEATER: Juana Bentley. BACKGROUND INFORMATION TECHNIQUE: This is a digital portable routine EEG with video. HISTORY: A 68-year-old male status post cardiac arrest and hypothermia protocol. EEG is ordered to detect evidence of seizures. MEDICATIONS: Include p.r.n. lorazepam and morphine. EEG FINDINGS: This is a technically limited routine EEG due to diffuse myogenic artifact necessitating heavy filtering. A posterior dominant alpha rhythm is not seen. The background appears to be very low voltage activity intermixed with 1 second bursts of relatively higher amplitude theta-delta slowing occurring regularly every 2.5-3 seconds. There are no definite epileptiform discharges or seizures. Hyperventilation is not performed. Photic stimulation does not alter the record. No drowsiness patterns. Stage II sleep is not seen. EKG is uninterpretable due to excessive artifact. IMPRESSION AND CLINICAL CORRELATION: This is an abnormal, but technically limited, routine electroencephalogram that appears to show a relative burst suppression pattern. This pattern would be consistent with pharmacologic sedation. Cannot rule out severe cerebral dysfunction. Recommend follow up EEG for comparison. cc: MD Red Travis MD [facility]
[2019-07-26] MEDS: ZOSYN 3.375 GM in NS 50 ML IV SCH ×4 (00:31→17:58)
[2019-07-26] MEDS: LOVENOX SUBQ SCH (00:31)
[2019-07-26] MEDS: PEPCID IV SCH ×2 (00:31→13:03)
[2019-07-26] MEDS: SODIUM CHLORIDE 0.9% INJ SCH ×2 (00:31→13:03)
[2019-07-26 04:51] LABS: ALLEN TEST YES; BE -0.3 mmoll (-3.0-3.0); BLOOD TYPE ARTERIAL; HCO3-(ACT) 24.6 mmoll (20.0-26.0); METHB 0.9 % (0.0-1.5); O2(CT) 20.3 mL/dL (15.0-23.0); O2HB 94.8 % (95.0-99.0); PCO2(98.6) 38 mmHg (35-45); PO2(98.6) 83 mmHg (60-100); SAMPLE BLOOD; SRATE 15 BPM; THB 15.2 g/dL (11.5-17.4); TVOL 500 mL; pH(98.6) 7.41 (7.35-7.45)
[2019-07-26 04:52] LABS: MODALITY VENTILATOR
--- NOTE | 2019-07-26 06:44 | PULMONOLOGY PROGRESS NOTE ---
DATE: 07/25/2019 SUBJECTIVE: The patient does not respond to voice. He has some minimal movement of his upper and lower extremities. He does have some spontaneous respiratory effort. OBJECTIVE: Vital Signs: Maximum temperature in the last 24 hours 100.3 degrees, blood pressure 78, respiratory rate 17, and oxygen saturation 98% HEENT: Pupils are equal and reactive. Oropharynx appears clear but limited view. Neck: Supple. Lungs: Chest reveals rhonchi bilaterally. Cardiac: S1-S2. Abdomen: Soft with positive bowel sounds. Extremities: Without edema. LABORATORIES: White blood count 12.23, hemoglobin 10.6, and platelet count 283,000. Sodium 141, potassium 4.3, chloride 102, bicarbonate 21, BUN 31, and creatinine 1.4. Chest x-ray reveals basilar infiltrates with some consolidation in the retrocardiac region. IMPRESSION: A 68-year-old with: 1. Cardiopulmonary arrest following aspiration event. 2. Acute hypoxemic respiratory failure. 3. Global encephalopathy. 4. Progressive supranuclear palsy. CT scan of the brain was unremarkable. EEG revealed no definite seizure. PLAN: 1. Continue p.r.n. Ativan. 2. Continue ventilatory support. 3. Guarded prognosis. 4. End of life discussions in progress. cc: MD Red Franco MD
--- NOTE | 2019-07-26 07:38 | Diag Imaging Result Doc PS360 ---
EXAM: CHEST-PORTABLE INDICATION: Ventilator management TECHNIQUE: One view COMPARISON: 07/25/2019 FINDINGS: Support tubes and lines are in stable positions. Pulmonary venous congestion and mild edema are approximately stable. No new consolidation is identified. Cardiac silhouette is stable. IMPRESSION: Stable chest. Electronically signed by Mc Stein 07/26/2019 7:36 AM
[2019-07-26] MEDS: NS 1,000 ML IV SCH ×2 (07:52→21:25)
[2019-07-26] MEDS: MORPHINE IV PRN ×2 (07:52→22:02)
[2019-07-26] MEDS: ALBUTEROL NEB INH SCH ×3 (09:28→21:38)
[2019-07-26] MEDS: TYLENOL PR PRN (12:11)
--- NOTE | 2019-07-26 15:16 | PROGRESS NOTE ---
DATE: 07/26/2019 SUBJECTIVE: Dr. Moctezuma saw Mr. Carmichael for initial Neurology evaluation earlier this week. He presented after cardiopulmonary arrest. He was managed with hypothermia, intubation, mechanical ventilation and sedation. He has been warmed. Temperature was 100.3 degrees max after cooling was stopped, and he has been afebrile for the last 24 hours. BUN climbed to 31. Liver enzymes have been mildly elevated. OBJECTIVE: On exam today, he is intubated, mechanically ventilated. I do not see significant spontaneous movement. With noxious stimulation, there is a little bit of withdrawal with each foot, a little more brisk with the right. There was some similar minimal withdrawal with noxious stimulation over the fingers. There was a little bit of facial grimace. He has good lateral eye movement with passive head turning. There is some vertical gaze noted on head tilt up and down. Neck is supple. DIAGNOSTIC DATA: The EEG a few days ago showed a burst suppression pattern. EEG today shows generally suppressed voltage throughout with no definite bursts of higher amplitude slowing. There is some muscle contraction artifact which is constant, not intermittent. There was no epileptiform discharge or other evidence of seizure. IMPRESSION AND PLAN: Likely post anoxic brain injury with global encephalopathy, persistent coma, EEG evidence of some deterioration in the last 48 hours. His baseline neurologic function was not normal, there was some cognitive impairment and significant gait difficulty prior to this event. In light of his age and baseline neurologic problems, documented event and lack of recovery during the 5 days since onset of coma, prognosis is very poor for recovery of significant neurologic function. I discussed this with family. Thanks for asking Neurology to see Mr. Carmichael. cc: MD Red Ford III, MD [facility]
[2019-07-26] MEDS: ATIVAN IV PRN ×2 (15:20→22:03)
--- NOTE | 2019-07-26 19:23 | EEG REPORT ---
DATE: 07/26/2019 EEG NUMBER: [id number]. COMMENT: This is a digitally recorded EEG done portably in the ICU on a 68-year-old patient with persistent coma following cardiopulmonary arrest. Prior EEG showed burst suppression. FINDINGS: There is no variation to correlate with spontaneous drowsing or sleep. There is very low amplitude mostly theta across both hemispheres. Muscle contraction is prominent throughout the record but does not hinder interpretation. No epileptiform discharge was identified. INTERPRETATION: Abnormal EEG because of generalized slowing with voltage suppression. CORRELATION: Compared to the EEG 48 hours ago, this record is consistent with deterioration, typical of progression of anoxic encephalopathy. There is no evidence of seizure. cc: MD Red Ford III, MD [facility]
--- NOTE | 2019-07-26 19:57 | PULMONOLOGY PROGRESS NOTE ---
DATE: 07/26/2019 SUBJECTIVE: The patient does not respond to voice. He has slight grimace to painful stimulation. He has a normal spontaneous respiratory effort and his rapid shallow breathing index is less than 60. HEENT: Pupils are equal and reactive. Oropharynx appears clear. Neck: Is supple. Chest: Reveals occasional rhonchi bilaterally. Cardiac exam: S1, S2. Abdomen: Is soft. Extremities: Without edema. LABORATORIES: Chest x-ray reveals endotracheal tube in good position. There is atelectasis or infiltrate at the left base. No chemistry or CBC today. Arterial blood gas reveals a pH 7.41, pCO2 of 38, pO2 of 83. IMPRESSION: A 68-year-old with 1. Cardiopulmonary arrest associated with an aspiration event. 2. Acute hypoxemic respiratory failure. 3. Progressive supranuclear palsy. 4. Global encephalopathy with negative followup CT scan and EEG. DISCUSSION: A 68-year-old with problems outlined above. He remains encephalopathic after completion of his hypothermia protocol. Family reports he is having a repeat EEG today per Dr. Carmona. They are considering withdrawal of support. We did have brief code discussion. They do not wish to proceed with cardioversion, CPR or aggressive measures if he were to have a cardiopulmonary arrest. RECOMMENDATIONS: 1. Continue current ventilatory support pending outcome of electroencephalogram. I believe he is a candidate for extubation, but it is not clear he will control his airway and cough appropriately. 2. Continue p.r.n. Ativan. 3. I asked the nurse to discuss code status with Dr. Burgos. At this juncture, I do not recommend ACLS. 4. End of life discussions continue. TIME SPENT IN CRITICAL CARE MANAGEMENT: 35 minutes. cc: MD Red Franco MD
[2019-07-27] MEDS: LOVENOX SUBQ SCH (00:56)
[2019-07-27] MEDS: SODIUM CHLORIDE 0.9% INJ SCH (00:57)
[2019-07-27] MEDS: PEPCID IV SCH (00:57)
[2019-07-27] MEDS: ALBUTEROL NEB INH SCH ×4 (03:17→20:05)
[2019-07-27] MEDS: ZOSYN 3.375 GM in NS 50 ML IV SCH ×3 (06:14)
[2019-07-27] MEDS: MORPHINE IV PRN ×7 (07:29→22:06)
[2019-07-27] MEDS: ATIVAN IV PRN ×5 (10:56→22:05)
[2019-07-27] MEDS: NS 1,000 ML IV SCH (10:57)
--- NOTE | 2019-07-27 13:54 | PROGRESS NOTE ---
DATE: 07/27/2019 SUBJECTIVE: Mr. Carmichael looks about the same clinically. at the bedside reports no response or communication. OBJECTIVE: I did not stimulate him vigorously. I did not see any spontaneous movement. He is breathing regularly. There continues good lateral eye movement with passive head turning and at least some vertical eye movement with passive head tilt. Follow-up EEG yesterday showed mostly voltage suppression and generalized slowing with no bursts of higher amplitude activity identified. I discussed very frankly with outside the cubicle the possibility of indefinite duration of this clinical state with brainstem function and no cortical function. I did not use the term vegetative during discussion with her, but he does appear vegetative. I do not have any new suggestion from neurology standpoint today. Thanks for asking us to see Mr. Carmichael. cc: MD Red Ford III, MD [facility]
[2019-07-27] MEDS: ATROPINE 1 % OPHTH SOLN SL PRN ×2 (15:37→22:08)
--- NOTE | 2019-07-28 01:26 | PULMONOLOGY PROGRESS NOTE ---
DATE: 07/27/2019 SUBJECTIVE: Patient withdraws to painful stimuli. He does not respond to voice. He was extubated last evening at the request of family. He has no increased work of breathing. OBJECTIVE: Vital Signs: Maximum temperature last 24 hours 100.2 degrees, blood pressure 138/65, heart rate 65, respiratory rate 15, oxygen saturation 98%. HEENT: Pupils are equal and partially reactive to light. Oropharynx appears clear. Neck: Supple. Extremities: Without edema. IMPRESSION: A 68-year-old with: 1. Cardiopulmonary arrest associated with an aspiration event. 2. Acute hypoxemic respiratory failure. 3. Progressive supranuclear palsy. 4. Anoxic injury with global encephalopathy. PLAN: 1. Discontinue aggressive treatment measures. 2. Initiate comfort measures. 3. End of life discussions have been held. The patient will be allowed to have a natural . 4. No additional recommendations. We will sign off Mr. Carmichael' case. Available if needed. cc: MD Red Franco MD
[2019-07-28] MEDS: ALBUTEROL NEB INH SCH ×4 (04:33→21:42)
[2019-07-28] MEDS: ATIVAN IV PRN ×6 (09:59→23:15)
[2019-07-28] MEDS: MORPHINE IV PRN ×7 (10:00→23:15)
--- NOTE | 2019-07-28 13:34 | PROGRESS NOTE ---
DATE: 07/28/2019 Mr. Carmichael looks about the same clinically. He is breathing regularly. I did not witness spontaneous limb movement. He did not respond to my fairly modest tactile stimulation and name calling. I did not examine him more vigorously today. I have reviewed attending and consultation notes. I agree with plans for conservative management. I do not have any new suggestion from neurology standpoint. Thanks for asking Neurology to see Mr. Carmichael. cc: MD Red Ford III, MD [facility]
[2019-07-28] MEDS: ATROPINE 1 % OPHTH SOLN SL PRN ×2 (14:00→19:31)
[2019-07-29] MEDS: MORPHINE IV PRN ×10 (02:39→22:42)
[2019-07-29] MEDS: ATIVAN IV PRN ×10 (02:39→22:42)
[2019-07-29] MEDS: ALBUTEROL NEB INH SCH ×4 (03:25→21:17)
[2019-07-29] MEDS: ATROPINE 1 % OPHTH SOLN SL PRN (10:12)
[2019-07-29] MEDS: TRANSDERM-SCOP TD SCH (14:10)
--- NOTE | 2019-07-29 16:04 | PROGRESS NOTE ---
DATE: 07/29/2019 SUBJECTIVE: Upon my arrival to patient's room, I was instructed that home hospice had been arranged if patient's condition permitted. Upon entering the room, patient was noted to have audible gurgling. He had a significant increased work of breathing. Upon questioning nursing staff, patient had required IV antibiotics to assist in increasing work of breathing. A long discussion was held with patient's son. The gravity of his imminent situation was detailed. OBJECTIVE: T-max 100.4 degrees, heart rate 56 to 94, respirations 10 to 20, blood pressure 119 to 161 over 47 to 62.General: Critically ill, increased work of breathing with audible gurgling. Cardiovascular: Regular irregular, tachycardic. No significant murmurs, rubs, or gallops. Pulmonary: Rhonchi bilaterally. Compromised air movement. Abdomen: Soft, nontender, nondistended. Decreased bowel sounds. Extremities: No clubbing or cyanosis, 1+ lower extremity edema bilaterally. Dermatologic: Evaluation reveals no evidence of rash. LABORATORY DATA: None. ASSESSMENT AND PLAN: Anoxic brain injury-unfortunately, patient does not have any higher brain functioning. The patient is a candidate for hospice support. As described above, home hospice was arranged, however at this point, I am concerned that during the transport home or immediately thereafter, he would be at high risk of passing. Because this would be traumatic for the patient's family as well as potentially traumatic for the patient, I do not feel like that this is the best option at present time. We will continue palliative management for a patient in hospital. I expect patient will pass in the near future. This was discussed in detail with patient's son. He has discussed this in detail with his stepmother. cc: MD Red Allan MD
[2019-07-30] MEDS: MORPHINE IV PRN ×11 (01:04→23:13)
[2019-07-30] MEDS: ATIVAN IV PRN ×11 (01:04→23:13)
[2019-07-30] MEDS: ALBUTEROL NEB INH SCH ×4 (03:36→20:19)
--- NOTE | 2019-07-30 13:46 | PROGRESS NOTE ---
DATE: 07/30/2019 SUBJECTIVE: The patient's chart was reviewed. Over the course of the last 24 hours, patient has had no significant changes. Patient remains unresponsive. He is being treated with palliative measures. His breathing continues to be labored with audible gurgling. Patient's temperature has been as high as 100. There has been no evidence of any distress. OBJECTIVE: T-max 100 degrees, heart rate 56 to 120, respirations 17 to 22, blood pressure 110 to 140 over 54 to 69.General: Unresponsive. Cardiovascular: Regular rate and rhythm. No significant murmurs, rubs, or gallops. Pulmonary: Rhonchi bilaterally and upper airway gurgling. Increased work of breathing. Abdomen: Soft, nontender, nondistended. Decreased bowel sounds. Extremities: No clubbing or cyanosis, 1+ lower extremity edema bilaterally. Dermatologic: Evaluation reveals no evidence of rash. LABORATORY DATA: None. ASSESSMENT AND PLAN: Anoxic brain injury-unfortunately, patient has demonstrated no evidence of improvement since initial hospitalization. Brainstem function appears intact, but higher brain function is not present. He is currently being treated with palliative measures. As above, he is actively dying with audible gurgling and increased work of breathing. Because of his progression over the course of the last 24-48 hours, it was felt that inpatient management was more appropriate than discharging home with home hospice. Patient's family is relieved at this decision. We will continue palliative measures. I anticipate patient will pass in the near future. The patient's is at bedside. cc: MD Red Allan MD
[2019-07-31] MEDS: MORPHINE IV PRN ×12 (01:45→22:12)
[2019-07-31] MEDS: ATIVAN IV PRN ×6 (01:45→22:12)
[2019-07-31] MEDS: ALBUTEROL NEB INH SCH ×4 (03:11→22:39)
[2019-07-31] MEDS: TYLENOL PR PRN (04:06)
[2019-07-31] MEDS: ATROPINE 1 % OPHTH SOLN SL PRN ×4 (08:56→22:11)
--- NOTE | 2019-07-31 11:41 | PROGRESS NOTE ---
DATE: 07/31/2019 Mr. Carmichael has not made significant neurologic change clinically. I did not see his when I rounded Wednesday. I spoke with her at the bedside today. I reinforced my agreement with decisions for conservative management. I do not have any specific suggestion from Neurology standpoint. I will be glad to see Mr. Carmichael again, if needed. cc: MD Red Ford III, MD
--- NOTE | 2019-07-31 13:11 | PROGRESS NOTE ---
DATE: 07/31/2019 SUBJECTIVE: Upon my arrival, patient remains unresponsive. He continues to have audible gurgling with respirations. He does not appear to be in any distress. OBJECTIVE: Vital Signs: T-max 102.9 degrees, heart rate 79 to 105, respirations 12 to 20, blood pressure 118 to 134/47 to 58. General: Unresponsive. Cardiovascular: Regular rate and rhythm. No significant murmurs, rubs or gallops. Pulmonary: Rhonchi and wheezing bilaterally. Compromised air movement. Abdomen: Soft, nontender, nondistended. Decreased bowel sounds. Extremities: No significant clubbing or cyanosis. There is 1+ lower extremity edema bilaterally. Dermatologic: Evaluation reveals no evidence of rash. LABORATORY DATA: None. ASSESSMENT AND PLAN: Anoxic brain injury--unfortunately, the patient has demonstrated no evidence of higher brain functioning. We will continue palliative measures. Patient does appear to be comfortable. His is at bedside. She understands the natural course of his condition. I anticipate the patient will likely pass in the next 24 to 48 hours. cc: MD Red Allan MD
[2019-08-01] MEDS: MORPHINE IV PRN ×11 (00:28→23:34)
[2019-08-01] MEDS: ATIVAN IV PRN ×10 (00:29→23:34)
[2019-08-01] MEDS: ATROPINE 1 % OPHTH SOLN SL PRN ×3 (02:35→14:31)
[2019-08-01] MEDS: ALBUTEROL NEB INH SCH ×4 (03:45→23:26)
--- NOTE | 2019-08-01 08:55 | PROGRESS NOTE ---
DATE: 08/01/2019 SUBJECTIVE: This is a 68-year-old patient of Dr. Red Burgos. He has had anoxic brain injury. No evidence of higher brain function. We continue palliative measures. He has not woken up. He has upper airway pooling and he has shallow respirations. OBJECTIVE: Vital Signs: He still continues to spike temperature periodically. Lungs: With scattered rhonchi, upper respiratory pooling. Cardiovascular: Distant heart sounds, appears to be regular rhythm and rate. Abdomen: Soft. Pedal edema noted, 1+ edema. PROGNOSIS: Poor. ASSESSMENT AND PLAN: 1. Anoxic brain injury. I do not suspect he will survive today. Continue comfort measures. 2. Review of his orders, I do not see any change. cc: MD Red Mccurdy MD
[2019-08-01] MEDS: TRANSDERM-SCOP TD SCH (14:30)
[2019-08-02] MEDS: MORPHINE IV PRN ×8 (00:40→16:25)
[2019-08-02] MEDS: ATIVAN IV PRN ×7 (01:42→16:26)
[2019-08-02] MEDS: ALBUTEROL NEB INH SCH ×3 (03:40→14:49)
--- NOTE | 2019-08-02 08:50 | PROGRESS NOTE ---
DATE: 08/02/2019 SUBJECTIVE: He is still unresponsive, upper airway gurgling, and respirations becoming shallow. He remains afebrile. OBJECTIVE: Vital Signs: Temperature 99.5 degrees, pulse 105, respirations 16, blood pressure 88/50. Eyes: Pupils are equal and round. Lungs: Lungs are clear in all lung mata. Cardiovascular exam: Regular rhythm and rate without murmur or S3. Abdomen: Abdomen is soft. Skin: Skin is warm and dry. ASSESSMENT AND PLAN: Anoxic brain injury. Comfort care. Upper airway pooling. I do not think he will survive long. Continue present comfort measures. cc: MD Red Mccurdy MD
[2019-08-02] MEDS: TYLENOL PR PRN (16:13)
[2019-08-02] MEDS: ATROPINE 1 % OPHTH SOLN SL PRN (16:25)
[2019-08-02 16:48] VITALS: BP 108/48
--- NOTE | 2019-08-21 09:55 | DISCHARGE SUMMARY ---
ADMISSION DATE: 07/22/2019 DISCHARGE DATE: 08/02/2019 FINAL DIAGNOSES: 1. 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 2. Progressive supranuclear palsy. 3. Probable aspiration pneumonitis. HISTORY OF PRESENT ILLNESS: Mr. Carmichael is a 68-year-old gentleman who has suffered for nearly 2 years from a progressive neurologic disease characterized by poor balance, frequent falls and dementia. 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 On the night of admission, he was eating a steak in a local restaurant when he was suddenly unable to breathe, turned purple in the face and collapsed. Bystanders attempted Heimlich maneuvers, and 911 was called. When paramedics arrived, he had a pulse, and eventually they were able to dislodge the piece of steak from his throat. On arrival at the hospital, however, he became pulseless and apneic, and after a 25-minute code, he had returned to spontaneous circulation. He was admitted to ICU, and the hypothermia protocol was instituted. Admission laboratory was remarkable for mild anemia and mildly elevated white blood count. Initial blood gas showed pH of 6.9, pCO2 of 108, pO2 of 122. Physical examination revealed a deeply obtunded gentleman who was basically unresponsive. Crackles were heard in both lung bases, and he was started on empiric coverage for aspiration pneumonitis with Zosyn. He required propofol sedation initially, and this and neuromuscular blockade were part of the hypothermia protocol as well. After 48 hours, the hypothermia protocol was discontinued, and he was allowed to warm back up, and sedation was discontinued. He intermittently would bite his ET tube. Neurology consultation and Pulmonary Critical Care consultation were obtained and were very helpful. He continued to have brainstem level responses no evidence of higher cortical function. Palliate Care consultation was requested on 07/27/2019 and advanced to Hospice care on 07/28/2019. Throughout this, he remained unresponsive and peacefully late on the evening of . cc: Red Burgos MD [facility]
== END 2019-08-02 17:45 | disposition expired | DRG 207 ==
LOC: SUPCPDRO → ED 20:41 → ICU 07-22 01:37 → SUATTDRO 07-22 01:37 → 3N 07-27 23:56
PROVIDERS: ADMIT Internal Medicine; ATTEND Internal Medicine